=== PATIENT | male | born 1970 | race Caucasian/White ===

== ENCOUNTER 2016-11-21 16:02 | Inpatient (IN) | payer MEDICAID ==
--- NOTE | 2016-11-21 16:52 | ED Physician Chart ---
Chief Complaint/HPI - Patient Information Date Seen:: 11/21/16 Time Seen:: 16:25 Chief Complaint:: seizure History of Present Illness:: At the patient's care home facility he had an approximately 5 minute long seizure. The seizure was described by the paramedics as stiffening and possibly shaking of the upper extremities. Paramedics administered 5 mg of Versed intramuscularly and the seizure stopped. Allergies:: Allergies Allergy/AdvReac Type Severity Reaction Status Date / Time No Known Allergies Allergy Verified 11/21/16 16:23 Vitals:: Vital Signs - 8 hr 11/21/16 16:02 Temp 97.4 F HR 87 RR 12 BP 109/78 O2 Sat % 95 Historian:: Other (paramedics) Review:: Nurse's Note Reviewed Review of Systems - Review of Systems General/Constitutional: No fever, No chills Skin: No skin lesions Head: No headache Eyes: No loss of vision ENT: No earache Neck: No neck pain, No swelling Cardio Vascular: No chest pain Pulmonary: No sputum, No wheezing GI: No nausea, No vomiting G/U: No dysuria Musculoskeletal: No bone or joint pain Endocrine: No polyuria, No polydipsia Hematopoietic: No bruising, No lymphadenopathy Allergic/Immuno: No urticaria Neurological: No syncope, Seizure Past Medical History - Past Medical History Past Medical History: HTN, Asthma/COPD, Other (profound mental retardation; seizure disorder; blind; anemia; asthma; osteopenia; hairline fracture left tibia; thyromegaly; mild congestive heart failure; hyperlipidemia) Family History: Other (unavailable) Social History: Care Facility Surgical History: other (unavailable) Psychiatricy History: Other (see above) Medication: Reviewed Family Medical History - Family Member Father History Unknown: Yes Physical Exam - Physical Examination Other Gen/Cons comments:: Chronically ill-appearing; mildly tachypnea Head: Atraumatic Eyes: Lids, conjuctiva normal, PERRL Skin: Nl inspection, No rash, No skin lesions, No ecchymosis ENMT: External ears, nose nl, TM canals nl, Nasal exam nl, Lips, teeth, gums nl , Oropharynx nl Neck: No nuchal rigidity Respiratory: Nl effort/Exclusion Other Respiratory comments:: Diffuse harsh breath sounds Cardio Vascular: RRR GI: No tenderness/rebounding/guarding, No organomegaly, No hernia : No CVA tenderness Other Extremities comments:: Left wrist and left hand contracture. Labs/Radiology/EKG Results - Lab Results Results: Laboratory Results - last 24 hr 11/21/16 11/21/16 11/21/16 17:18 17:18 17:59 WBC 13.0 H D RBC 4.39 Hgb 13.2 Hct 39.8 D MCV 90.6 MCH 30.1 H MCHC Differential 33.2 RDW 12.1 Plt Count 251 MPV 7.2 Neutrophils % 89.0 H Lymphocytes % 6.0 L Monocytes % 2.2 Eosinophils % 0.3 Basophils % 2.5 H Sodium 135 L Potassium 4.5 Chloride 99 Carbon Dioxide 33.4 H Anion Gap 7.1 BUN 12 Creatinine 0.6 L Est GFR ( Amer) > 60.0 Est GFR (Non-Af Amer) > 60.0 BUN/Creatinine Ratio 20.0 Glucose 116 H Whole Bld Lactic Acid 1.12 Calcium 10.5 H Carbamazepine < 2.0 L ED Septic Shock - . Is Septic Shock (SBP<90, OR Lactate>4 mmol\L) present?: No - <6hrs of presentation: Vital Signs: Vital Signs - 8 hr 11/21/16 16:02 Temp 97.4 F HR 87 RR 12 BP 109/78 O2 Sat % 95 Reassessment (Disposition) - Reassessment Reassessment Condition:: Improved - Diagnosis Diagnosis:: Seizure; no seizure disorder; thoracic quadriplegia; severe mental disability - Patient Disposition Admitted to:: Telemetry Spoke to:: [facility] Condition at Disposition:: Stable, Improved
[2016-11-21 17:25] LABS: % BASOPHILS 2.5 % (0.0-2.0); % EOSINOPHILS 0.3 % (0.0-5.0); % MONOCYTES 2.2 % (2.0-10.0); HEMOGLOBIN 13.2 gm/dL (13.2-17.3); MEAN CELL VOLUME 90.6 fl (80-99); MEAN CORPUSCULAR HEMOGLOBIN 30.1 pg (26.0-30.0); MEAN CORPUSCULAR HGB CONC 33.2 pg (28.0-36.0); MEAN PLATELET VOLUME 7.2 fl; NEUTROPHILE ABSOLUTE 11.6 Th/cmm (1.8-8.0); PLATELET COUNT 251 Th/cmm (150-400); RED BLOOD COUNT 4.39 Mil/cmm (4.30-5.70); RED CELL DISTRIBUTION WIDTH 12.1 % (11.5-20.0)
[2016-11-21 17:40] LABS: ANION GAP 7.1 (7.0-16.0); BUN - UREA NITROGEN 12 mg/dL (7-25); CALCIUM SERUM 10.5 mg/dL (8.6-10.3); CARBON DIOXIDE 33.4 mEq/L (21.0-31.0); CHLORIDE 99 mEq/L (98-107); CREATININE - SERUM 0.6 mg/dL (0.7-1.3); GLUCOSE 116 mg/dL (70-105); POTASSIUM SERUM 4.5 mEq/L (3.5-5.1); SODIUM SERUM 135 mEq/L (136-145)
[2016-11-21 17:42] LABS: HEMATOCRIT 39.8 % (39.0-49.0)
[2016-11-21] MEDS ORDERED: Maalox 30 mL Cup PO PRN (20:31)
[2016-11-21] MEDS ORDERED: Albuterol Nebulizer 2.5mg/3mL HHN PRN (20:31)
[2016-11-21] MEDS ORDERED: guaiFENesin 200 MG/10 ML UDC PO PRN (20:31)
[2016-11-21] MEDS ORDERED: Magnesium Hydroxide (MOM) 30 mL UDC PO PRN (20:45)
--- NOTE | 2016-11-21 21:40 | Admit Criteria Form ---
Admit Criteria Forms - Admit Criteria Diagnosis: SEIZURE Clinical Indications for Admission to Inpatient Care (Place 'X' for any and all applicable criteria): Admission is indicated for seizure and ANY ONE of the following(1)(2)(3)(4)(5): [X]I. Inpatient admission required rather than observation care (Also use Seizure: Observation Care Criteria as appropriate) because of ANY ONE of the following: [ ]a) Altered mental status that is severe or persistent [ ]b) New focal neurologic deficit that is severe or persistent [ ]c) Metabolic disorder (eg, hypoglycemia, hyponatremia) that is severe or persistent [ ]d) Recurrent seizure [X]e) Outpatient antiseizure regimen cannot be established (eg , patient cannot tolerate medication, initiation requires inpatient care) [ ]f) Need for ongoing intravenous infusion of antiseizure medication [ ]g) Cardiac arrhythmias of immediate concern [ ]h) Cerebral bleeding, hydrocephalus, or vasospasm monitoring (14) [ ]i) Increased intracranial pressure or cerebral edema monitoring (15) [X]j) Other treatment or monitoring requiring inpatient admission [ ]II. Status epilepticus [A] or repetitive seizures not controlled with emergent treatment (6)(8) [ ]III. Brain disorder (eg, tumor, edema, and hydrocephalus) that requiring monitoring or intervention available only at inpatient level of care. [ ]IV. Brain insult (eg, severe trauma, stroke, drug toxicity, or withdrawal) that requires monitoring or intervention available only at inpatient level of care (10)(11) Extended stay beyond goal length of stay may be needed for (22) [ ]a) Complications of status epilepticus [ ]b) Refractory status epilepticus [ ]c) Etiology-specific therapy for conditions such as PANEL BUILDER infection, head injury,eclampsia, severe metabolic abnormalities, and brain tumor [ ]d) Residual neurologic damage, [ ]e) Initiation of significant change to anticonvulsant treatment [ ]f) Older patients (65 years or older) [ ]g) Patient requiring intubation (eg, to protect airway) The original [facility] content created by [employer] [facility] [employer] has been revised. The portions of the content which have been revised are identified through the use of italic text or in bold, and [facility] [employer] has neither reviewed nor approved the modified material. All other unmodified content is copyright [employer]. Please see references footnoted in the original [facility] edition 2016
[2016-11-21] MEDS: D5-0.45NS 1,000 ML IV SCH (22:01)
[2016-11-22] MEDS: Calcium Carb/Vit D 500 mg/200 U Tab PO SCH (08:45)
[2016-11-22] MEDS: Multivitamin w/ Minerals Tab PO SCH (08:45)
--- NOTE | 2016-11-22 10:01 | Diagnostic Imaging Report ---
Portable chest x-ray HISTORY: Shortness of breath The patient is rotated. Heart size difficult to assess, but appears to be enlarged. There appears to be increased density in left lower lobe with obscuration of the left hemidiaphragm. Pneumonia and/or atelectasis cannot be needed. There is a scoliosis of the thoracic spine convexity to the right along with diffuse degenerative changes. IMPRESSION: 1. Increased density within the left lower lobe. Pneumonia and/or atelectasis cannot be excluded 2. Cardiomegaly 3. Scoliosis
[2016-11-22] MEDS: D5-0.45NS 1,000 ML IV SCH ×2 (11:04→23:58)
[2016-11-22 11:07] LABS: URINE BILIRUBIN NEGATIVE (NEGATIVE); URINE BLOOD NEGATIVE (NEGATIVE); URINE COLOR YELLOW; URINE GLUCOSE (UA) NEGATIVE (NEGATIVE); URINE KETONE NEGATIVE (NEGATIVE); URINE PROTEIN NEGATIVE (NEGATIVE); URINE UROBILINOGEN 0.2 E.U./dL (0.2 - 1.0)
[2016-11-22 11:17] LABS: URINE BACTERIA NONE SEEN /hpf (NONE SEEN); URINE EPITHELIAL CELLS NONE SEEN /lpf (FEW); URINE RBC NONE SEEN /hpf (0-5); URINE WBC 0-2 /hpf (0-5)
[2016-11-22] MEDS: Levofloxacin 500mg/100mL 500 MG/100 ML BAG IV SCH (15:04)
--- NOTE | 2016-11-22 16:39 | Diagnostic Imaging Report ---
Portable chest x-ray HISTORY: Pneumonia Patient is rotated. The heart appears somewhat enlarged. No definite focal pulmonary parenchymal processes are seen. Improved visualization of the left lower lobe and left hemidiaphragm since 11/21/2016. IMPRESSION: 1. Improved visualization of the left lower lobe since November 21, 2016 with no definite focal pulmonary parenchymal processes.
--- NOTE | 2016-11-22 18:38 | History & Physical ---
ADMIT DATE: 11/21/2016 CHIEF COMPLAINT: Uncontrolled seizures. HISTORY OF PRESENT ILLNESS: This is a 46-year-old male with history of seizure disorder, mental retardation, cerebral palsy, hypercholesterolemia, scoliosis, who was admitted from nursing facility secondary to seizure lasting for several minutes and then was brought into Emergency Room ____ low. PAST MEDICAL HISTORY: As mentioned in history present illness. PAST SURGICAL HISTORY: Unable to obtain from the patient. ALLERGIES: No known drug allergies. MEDICATIONS: Tylenol, Dulcolax, Lamictal, Keppra, Trileptal, Zocor. FAMILY HISTORY: Noncontributory. SOCIAL HISTORY: The patient is a halfway patient requiring 24-hour total care. REVIEW OF SYSTEMS: This is limited secondary to the patient's current mental state. We have also spoken with patient and ____, number [phone]. There is mother, ____ Zainab Padilla, I did not have contact number. At this time, we have also ____ information from ____ nursing at [facility], [place] ____, her number is [phone] as well as from Dr. Russo. PHYSICAL EXAMINATION: VITAL SIGNS: Blood pressure 107/68, respirations 17, pulse 66, temperature 97.8. GENERAL: Middle-aged male, appears chronically ill. NECK: Supple. No mass. LUNGS: Equal breath sounds, few rhonchi. HEART: Regular rate and rhythm without appreciable murmurs. ABDOMEN: Soft and nontender. EXTREMITIES: Positive excoriations. NEUROLOGIC: Positive contractures. LABORATORY DATA: WBC 13.0, hemoglobin ____, platelets are 251. Sodium 130, potassium 4.5, BUN 12, creatinine 0.6, glucose 116, calcium 10.5. UA essentially negative. ASSESSMENT AND PLAN: Uncontrolled seizure, hyponatremia, hyperglycemia, mental retardation, cerebral palsy, hypercholesterolemia, possible pneumonia, scoliosis. Chest x-ray showed opacity on the right side of ____. We started the patient on IV antibiotic and continue on IV hydration and will adjust the patient's antihypertensive medication. We will continue to monitor the patient closely. Case was discussed with the patient's family members ____. JOB# [id number]
[2016-11-23 05:17] LABS: HEMOGLOBIN 12.2 gm/dL (13.2-17.3); MEAN CELL VOLUME 90.6 fl (80-99); MEAN CORPUSCULAR HEMOGLOBIN 30.9 pg (26.0-30.0); MEAN CORPUSCULAR HGB CONC 34.1 pg (28.0-36.0); MEAN PLATELET VOLUME 7.3 fl; PLATELET COUNT 252 Th/cmm (150-400); RED BLOOD COUNT 3.94 Mil/cmm (4.30-5.70)
[2016-11-23 05:31] LABS: HEMATOCRIT 35.7 % (39.0-49.0); WHITE BLOOD COUNT 10.2 Th/cmm (4.8-10.8)
[2016-11-23 05:32] LABS: ALB/GLOB RATIO 1.2 (1.0-1.8); ALKALINE PHOSPHATASE 93 U/L (34-104); ANION GAP 7.8 (7.0-16.0); BILIRUBIN,TOTAL 0.4 mg/dL (0.3-1.0); BUN - UREA NITROGEN 7 mg/dL (7-25); BUN/CREATININE RATIO 11.7; CALCIUM SERUM 9.5 mg/dL (8.6-10.3); CARBON DIOXIDE 27.8 mEq/L (21.0-31.0); CHLORIDE 100 mEq/L (98-107); CREATININE - SERUM 0.6 mg/dL (0.7-1.3); GLUCOSE 114 mg/dL (70-105); MAGNESIUM 1.7 mg/dL (1.9-2.7); POTASSIUM SERUM 3.6 mEq/L (3.5-5.1); SGOT 18 U/L (13-39); SGPT/ALT 23 U/L (7-52); SODIUM SERUM 132 mEq/L (136-145)
[2016-11-23] MEDS: Calcium Carb/Vit D 500 mg/200 U Tab PO SCH (08:45)
[2016-11-23] MEDS: Multivitamin w/ Minerals Tab PO SCH (08:45)
[2016-11-23 09:38] LABS: BAND NEUTROPHILE 3 % (0-10); EOSINOPHIL 2 % (0-5); NEUTROPHILS 83 % (40-80); TOTAL CELLS COUNTED 100
[2016-11-23 09:39] LABS: PLATELET ESTIMATE ADEQUATE (NORMAL); PLATELET MORPHOLOGY NORMAL (NORMAL)
[2016-11-23] MEDS: Fleet Enema 135 mL RC SCH (11:12)
[2016-11-23] MEDS: Levofloxacin 500mg/100mL 500 MG/100 ML BAG IV SCH (14:49)
[2016-11-23] MEDS: D5-0.45NS 1,000 ML IV SCH (14:50)
[2016-11-23] MEDS ORDERED: Mag Sulfate 2gm/50mL Premix 2 GM/50 ML BAG IV ONE (15:34)
--- NOTE | 2016-11-23 15:36 | Internal Medicine Prog Note ---
Internal Medicine Subjective - Subjective Patient seen and examined:: with staff, chart reviewed Patient is:: asleep, non-verbal, non-interactive Patient Complaints of:: congestion, sore throat Per staff patient is:: no episodes of fall, confused Internal Medicine Objective - Results Result Diagrams: 11/23/16 04:52 11/23/16 04:52 Recent Labs: Laboratory Last Values WBC 10.2 Th/cmm (4.8-10.8) D 11/23/16 04:52 RBC 3.94 Mil/cmm (4.30-5.70) L 11/23/16 04:52 Hgb 12.2 gm/dL (13.2-17.3) L 11/23/16 04:52 Hct 35.7 % (39.0-49.0) L D 11/23/16 04:52 MCV 90.6 fl (80-99) 11/23/16 04:52 MCH 30.9 pg (26.0-30.0) H 11/23/16 04:52 MCHC Differential 34.1 pg (28.0-36.0) 11/23/16 04:52 RDW 12.0 % (11.5-20.0) 11/23/16 04:52 Plt Count 252 Th/cmm (150-400) 11/23/16 04:52 MPV 7.3 fl 11/23/16 04:52 Neutrophils % 89.0 % (40.0-80.0) H 11/21/16 17:18 Band Neutrophils % 3 % (0-10) 11/23/16 04:52 Lymphocytes % 6.0 % (20.0-50.0) L 11/21/16 17:18 Monocytes % 2.2 % (2.0-10.0) 11/21/16 17:18 Eosinophils % 0.3 % (0.0-5.0) 11/21/16 17:18 Basophils % 2.5 % (0.0-2.0) H 11/21/16 17:18 Neutrophils (Manual) 83 % (40-80) H 11/23/16 04:52 Lymphocytes 10 % (20-50) L 11/23/16 04:52 Monocytes 2 % (2-10) 11/23/16 04:52 Eosinophils 2 % (0-5) 11/23/16 04:52 Platelet Estimate ADEQUATE (NORMAL) 11/23/16 04:52 Platelet Morphology NORMAL (NORMAL) 11/23/16 04:52 RBC Morph Micro Appear NORMAL (NORMAL) 11/23/16 04:52 Sodium 132 mEq/L (136-145) L 11/23/16 04:52 Potassium 3.6 mEq/L (3.5-5.1) 11/23/16 04:52 Chloride 100 mEq/L (98-107) 11/23/16 04:52 Carbon Dioxide 27.8 mEq/L (21.0-31.0) 11/23/16 04:52 Anion Gap 7.8 (7.0-16.0) 11/23/16 04:52 BUN 7 mg/dL (7-25) 11/23/16 04:52 Creatinine 0.6 mg/dL (0.7-1.3) L 11/23/16 04:52 Est GFR ( Amer) > 60.0 ml/min (>90) 11/23/16 04:52 Est GFR (Non-Af Amer) > 60.0 ml/min 11/23/16 04:52 BUN/Creatinine Ratio 11.7 11/23/16 04:52 Glucose 114 mg/dL (70-105) H 11/23/16 04:52 Whole Bld Lactic Acid 1.12 mmol/L (0.60-1.99) 11/21/16 17:59 Calcium 9.5 mg/dL (8.6-10.3) 11/23/16 04:52 Magnesium 1.7 mg/dL (1.9-2.7) L 11/23/16 04:52 Total Bilirubin 0.4 mg/dL (0.3-1.0) 11/23/16 04:52 AST 18 U/L (13-39) 11/23/16 04:52 ALT 23 U/L (7-52) 11/23/16 04:52 Alkaline Phosphatase 93 U/L (34-104) 11/23/16 04:52 Total Protein 7.4 gm/dL (6.0-8.3) 11/23/16 04:52 Albumin 4.1 gm/dL (4.2-5.5) L 11/23/16 04:52 Globulin 3.3 gm/dL 11/23/16 04:52 Albumin/Globulin Ratio 1.2 (1.0-1.8) 11/23/16 04:52 Urine Source CATH 11/22/16 10:40 Urine Color YELLOW 11/22/16 10:40 Urine Clarity SL. CLOUDY (CLEAR) 11/22/16 10:40 Urine pH 7.0 11/22/16 10:40 Ur Specific [place] 1.015 (1.005-1.030) 11/22/16 10:40 Urine Protein NEGATIVE mg/dL (NEGATIVE) 11/22/16 10:40 Urine Glucose (UA) NEGATIVE mg/dL (NEGATIVE) 11/22/16 10:40 Urine Ketones NEGATIVE mg/dL (NEGATIVE) 11/22/16 10:40 Urine Blood NEGATIVE (NEGATIVE) 11/22/16 10:40 Urine Nitrate NEGATIVE (NEGATIVE) 11/22/16 10:40 Urine Bilirubin NEGATIVE (NEGATIVE) 11/22/16 10:40 Urine Urobilinogen 0.2 E.U./dL (0.2 - 1.0) 11/22/16 10:40 Ur Leukocyte Esterase NEGATIVE (NEGATIVE) 11/22/16 10:40 Urine RBC NONE SEEN /hpf (0-5) 11/22/16 10:40 Urine WBC 0-2 /hpf (0-5) 11/22/16 10:40 Ur Epithelial Cells NONE SEEN /lpf (FEW) 11/22/16 10:40 Urine Bacteria NONE SEEN /hpf (NONE SEEN) 11/22/16 10:40 Carbamazepine < 2.0 ug/ml (4.0-12.0) L 11/21/16 17:18 - Physical Exam Vitals and I&O: Vital Signs Temp 98.3 F 11/23/16 11:47 Pulse 71 11/23/16 11:47 Resp 18 11/23/16 13:00 BP 106/65 11/23/16 11:47 Pulse Ox 97 11/23/16 11:47 Intake & Output 11/22/16 11/23/16 11/23/16 18:59 06:59 18:59 Intake Total 1400 1050 1000 Balance 1400 1050 1000 Weight (lbs) 52.617 kg 56.501 kg 56.501 kg Intake: Intake, IV Amount 1100 1000 1000 D5-0.45NS 1,000 ml @ 80 1000 1000 1000 mls/hr IV .[id number] [facility] Rx #:[id number] Levofloxacin 500mg/100mL 100 500 mg In 100 ml @ 100 mls/hr IV Q24HR [facility] Rx#: [id number] Oral 300 50 Other: # Voids 2 2 1 # Bowel Movements 0 1 Active Medications: Current Medications Acetaminophen (Tylenol) 650 mg PO Q4HR PRN PRN Reason: Pain (Mild) Stop: 01/20/17 20:28 Al Hydrox/Mg Hydrox/Simethicone (Maalox) 30 ml PO Q6H PRN PRN Reason: Dyspepsia Stop: 01/20/17 20:30 Albuterol Sulfate (Albuterol 2.5mg/3ml Neb Ud) 2.5 mg HHN Q2HRT PRN PRN Reason: Shortness of Breath or Wheeze Stop: 01/20/17 20:30 Atenolol (Tenormin) 50 mg PO DAILY [facility] Stop: 01/21/17 08:59 Last Admin: 11/23/16 08:45 Dose: 50 mg Bisacodyl (Dulcolax 10 Mg Supp) 10 mg RC DAILY PRN PRN Reason: Constipation Stop: 01/20/17 20:37 Calcium/Vitamin D (Oscal W/Vitamin D) 1 tab PO DAILY [facility] Stop: 01/21/17 08:59 Last Admin: 11/23/16 08:45 Dose: 1 tab Guaifenesin (Robitussin) 200 mg PO Q4HR PRN PRN Reason: Cough or Congestion Stop: 01/20/17 20:30 Dextrose/Sodium Chloride (D5-0.45ns) 1,000 mls @ 80 mls/hr IV .[id number] [facility] Stop: 01/20/17 20:44 Last Admin: 11/23/16 14:50 Dose: 80 mls/hr Levofloxacin (Levaquin Pb) 500 mg in 100 mls @ 100 mls/hr IV Q24HR [facility] Stop: 01/21/17 14:59 Last Admin: 11/23/16 14:49 Dose: 100 mls/hr Magnesium Sulfate (Magnesium Sulfate Premix) 2 gm in 50 mls @ 25 mls/hr IV X1 ONE Stop: 11/23/16 17:33 Lamotrigine (Lamictal) 350 mg PO BID [facility] Stop: 01/21/17 08:59 Last Admin: 11/23/16 08:46 Dose: 350 mg Levetiracetam (Keppra) 2,000 mg PO HS [facility] Stop: 01/20/17 20:59 Last Admin: 11/22/16 22:03 Dose: 2,000 mg Lorazepam (Ativan) 1 mg IV Q4H PRN; Protocol PRN Reason: Seizure Stop: 01/20/17 20:30 Magnesium Hydroxide (Milk Of Magnesia) 30 ml PO DAILY PRN PRN Reason: Constipation Stop: 01/20/17 20:44 Ondansetron HCl (Zofran) 4 mg IV Q8H PRN PRN Reason: Nausea / Vomiting Stop: 01/20/17 20:30 Oxcarbazepine (Trileptal) 900 mg PO BID [facility] Stop: 01/21/17 16:59 Last Admin: 11/23/16 10:11 Dose: 900 mg Simvastatin (Zocor) 20 mg PO QPM [facility] PRN Reason: Protocol Stop: 01/21/17 16:59 Last Admin: 11/22/16 17:15 Dose: 20 mg Sodium Phosphate (Fleet Enema) 133 ml RC DAILY [facility] Stop: 01/21/17 08:59 Last Admin: 11/23/16 11:12 Dose: Not Given General: demented HEENT: NC/AT, PERRLA Neck: Supple, No JVD Lungs: congested, rales Cardiovascular: RRR, Normal S1, Normal S2 Abdomen: soft non-tender, globular, positive bowel sound Extremities: excoriation, contracture Neurological: no change - Procedures Procedures: Procedures Procedure Code Date INSERT INDWELLING CATH 57.94 12/19/01 INSERT URINARY CATHETER 72033 12/19/01 Internal Medicine Assmt/Plan - Assessment Assessment: Uncontrolled seizure, hyponatremia, hyperglycemia, mental retardation, cerebral palsy, hypercholesterolemia, possible pneumonia, scoliosis - Plan Plan: cont on iv abx o2 bronchodilator tx check cxr dw rn pls see my order
[2016-11-24] MEDS: D5-0.45NS 1,000 ML IV SCH ×2 (05:40→19:35)
--- NOTE | 2016-11-24 09:18 | Diagnostic Imaging Report ---
Portable chest x-ray HISTORY: Cough The overall heart size is difficult to assess with portable technique in a poor inspiration. No acute focal pulmonary processes. No hilar or mediastinal abnormalities. Scoliosis of the thoracic spine. This may be positional. IMPRESSION: 1. No acute focal pulmonary processes
[2016-11-24] MEDS: Fleet Enema 135 mL RC SCH (09:20)
[2016-11-24] MEDS: Multivitamin w/ Minerals Tab PO SCH (09:21)
[2016-11-24] MEDS: Calcium Carb/Vit D 500 mg/200 U Tab PO SCH (09:21)
[2016-11-24] MEDS: Levofloxacin 500mg/100mL 500 MG/100 ML BAG IV SCH (14:18)
--- NOTE | 2016-11-24 22:36 | Internal Medicine Prog Note ---
Internal Medicine Subjective - Subjective Patient seen and examined:: with staff, chart reviewed Patient is:: asleep, non-verbal, non-interactive Patient Complaints of:: congestion Per staff patient is:: no adverse event, no episodes of fall, noncompliant, confused Internal Medicine Objective - Results Result Diagrams: 11/23/16 04:52 11/23/16 04:52 Recent Labs: Laboratory Last Values WBC 10.2 Th/cmm (4.8-10.8) D 11/23/16 04:52 RBC 3.94 Mil/cmm (4.30-5.70) L 11/23/16 04:52 Hgb 12.2 gm/dL (13.2-17.3) L 11/23/16 04:52 Hct 35.7 % (39.0-49.0) L D 11/23/16 04:52 MCV 90.6 fl (80-99) 11/23/16 04:52 MCH 30.9 pg (26.0-30.0) H 11/23/16 04:52 MCHC Differential 34.1 pg (28.0-36.0) 11/23/16 04:52 RDW 12.0 % (11.5-20.0) 11/23/16 04:52 Plt Count 252 Th/cmm (150-400) 11/23/16 04:52 MPV 7.3 fl 11/23/16 04:52 Neutrophils % 89.0 % (40.0-80.0) H 11/21/16 17:18 Band Neutrophils % 3 % (0-10) 11/23/16 04:52 Lymphocytes % 6.0 % (20.0-50.0) L 11/21/16 17:18 Monocytes % 2.2 % (2.0-10.0) 11/21/16 17:18 Eosinophils % 0.3 % (0.0-5.0) 11/21/16 17:18 Basophils % 2.5 % (0.0-2.0) H 11/21/16 17:18 Neutrophils (Manual) 83 % (40-80) H 11/23/16 04:52 Lymphocytes 10 % (20-50) L 11/23/16 04:52 Monocytes 2 % (2-10) 11/23/16 04:52 Eosinophils 2 % (0-5) 11/23/16 04:52 Platelet Estimate ADEQUATE (NORMAL) 11/23/16 04:52 Platelet Morphology NORMAL (NORMAL) 11/23/16 04:52 RBC Morph Micro Appear NORMAL (NORMAL) 11/23/16 04:52 Sodium 132 mEq/L (136-145) L 11/23/16 04:52 Potassium 3.6 mEq/L (3.5-5.1) 11/23/16 04:52 Chloride 100 mEq/L (98-107) 11/23/16 04:52 Carbon Dioxide 27.8 mEq/L (21.0-31.0) 11/23/16 04:52 Anion Gap 7.8 (7.0-16.0) 11/23/16 04:52 BUN 7 mg/dL (7-25) 11/23/16 04:52 Creatinine 0.6 mg/dL (0.7-1.3) L 11/23/16 04:52 Est GFR ( Amer) > 60.0 ml/min (>90) 11/23/16 04:52 Est GFR (Non-Af Amer) > 60.0 ml/min 11/23/16 04:52 BUN/Creatinine Ratio 11.7 11/23/16 04:52 Glucose 114 mg/dL (70-105) H 11/23/16 04:52 Whole Bld Lactic Acid 1.12 mmol/L (0.60-1.99) 11/21/16 17:59 Calcium 9.5 mg/dL (8.6-10.3) 11/23/16 04:52 Magnesium 1.7 mg/dL (1.9-2.7) L 11/23/16 04:52 Total Bilirubin 0.4 mg/dL (0.3-1.0) 11/23/16 04:52 AST 18 U/L (13-39) 11/23/16 04:52 ALT 23 U/L (7-52) 11/23/16 04:52 Alkaline Phosphatase 93 U/L (34-104) 11/23/16 04:52 Total Protein 7.4 gm/dL (6.0-8.3) 11/23/16 04:52 Albumin 4.1 gm/dL (4.2-5.5) L 11/23/16 04:52 Globulin 3.3 gm/dL 11/23/16 04:52 Albumin/Globulin Ratio 1.2 (1.0-1.8) 11/23/16 04:52 Urine Source CATH 11/22/16 10:40 Urine Color YELLOW 11/22/16 10:40 Urine Clarity SL. CLOUDY (CLEAR) 11/22/16 10:40 Urine pH 7.0 11/22/16 10:40 Ur Specific [place] 1.015 (1.005-1.030) 11/22/16 10:40 Urine Protein NEGATIVE mg/dL (NEGATIVE) 11/22/16 10:40 Urine Glucose (UA) NEGATIVE mg/dL (NEGATIVE) 11/22/16 10:40 Urine Ketones NEGATIVE mg/dL (NEGATIVE) 11/22/16 10:40 Urine Blood NEGATIVE (NEGATIVE) 11/22/16 10:40 Urine Nitrate NEGATIVE (NEGATIVE) 11/22/16 10:40 Urine Bilirubin NEGATIVE (NEGATIVE) 11/22/16 10:40 Urine Urobilinogen 0.2 E.U./dL (0.2 - 1.0) 11/22/16 10:40 Ur Leukocyte Esterase NEGATIVE (NEGATIVE) 11/22/16 10:40 Urine RBC NONE SEEN /hpf (0-5) 11/22/16 10:40 Urine WBC 0-2 /hpf (0-5) 11/22/16 10:40 Ur Epithelial Cells NONE SEEN /lpf (FEW) 11/22/16 10:40 Urine Bacteria NONE SEEN /hpf (NONE SEEN) 11/22/16 10:40 Carbamazepine < 2.0 ug/ml (4.0-12.0) L 11/21/16 17:18 - Physical Exam Vitals and I&O: Vital Signs Temp 98.0 F 11/24/16 20:00 Pulse 66 11/24/16 20:26 Resp 16 11/24/16 20:26 BP 93/53 11/24/16 20:00 Pulse Ox 95 11/24/16 20:26 Intake & Output 11/24/16 11/24/16 11/25/16 06:59 18:59 06:59 Intake Total 1000 1000 Balance 1000 1000 Weight (lbs) 57.198 kg Intake: Intake, IV Amount 1000 1000 D5-0.45NS 1,000 ml @ 80 1000 1000 mls/hr IV .[id number] [facility] Rx #:[id number] Other: # Voids 3 # Bowel Movements 0 Active Medications: Current Medications Acetaminophen (Tylenol) 650 mg PO Q4HR PRN PRN Reason: Pain (Mild) Stop: 01/20/17 20:28 Al Hydrox/Mg Hydrox/Simethicone (Maalox) 30 ml PO Q6H PRN PRN Reason: Dyspepsia Stop: 01/20/17 20:30 Albuterol Sulfate (Albuterol 2.5mg/3ml Neb Ud) 2.5 mg HHN Q2HRT PRN PRN Reason: Shortness of Breath or Wheeze Stop: 01/20/17 20:30 Atenolol (Tenormin) 50 mg PO DAILY [facility] Stop: 01/21/17 08:59 Last Admin: 11/24/16 09:21 Dose: Not Given Bisacodyl (Dulcolax 10 Mg Supp) 10 mg RC DAILY PRN PRN Reason: Constipation Stop: 01/20/17 20:37 Calcium/Vitamin D (Oscal W/Vitamin D) 1 tab PO DAILY [facility] Stop: 01/21/17 08:59 Last Admin: 11/24/16 09:21 Dose: 1 tab Guaifenesin (Robitussin) 200 mg PO Q4HR PRN PRN Reason: Cough or Congestion Stop: 01/20/17 20:30 Dextrose/Sodium Chloride (D5-0.45ns) 1,000 mls @ 80 mls/hr IV .[id number] [facility] Stop: 01/20/17 20:44 Last Admin: 11/24/16 19:35 Dose: 80 mls/hr Levofloxacin (Levaquin Pb) 500 mg in 100 mls @ 100 mls/hr IV Q24HR [facility] Stop: 01/21/17 14:59 Last Admin: 11/24/16 14:18 Dose: 100 mls/hr Lamotrigine (Lamictal) 350 mg PO BID [facility] Stop: 01/21/17 08:59 Last Admin: 11/24/16 17:18 Dose: Not Given Levetiracetam (Keppra) 2,000 mg PO HS [facility] Stop: 01/20/17 20:59 Last Admin: 11/24/16 20:24 Dose: 2,000 mg Lorazepam (Ativan) 1 mg IV Q4H PRN; Protocol PRN Reason: Seizure Stop: 01/20/17 20:30 Magnesium Hydroxide (Milk Of Magnesia) 30 ml PO DAILY PRN PRN Reason: Constipation Stop: 01/20/17 20:44 Ondansetron HCl (Zofran) 4 mg IV Q8H PRN PRN Reason: Nausea / Vomiting Stop: 01/20/17 20:30 Oxcarbazepine (Trileptal) 900 mg PO BID [facility] Stop: 01/21/17 16:59 Last Admin: 11/24/16 17:18 Dose: Not Given Simvastatin (Zocor) 20 mg PO QPM [facility] PRN Reason: Protocol Stop: 01/21/17 16:59 Last Admin: 11/24/16 17:18 Dose: Not Given Sodium Phosphate (Fleet Enema) 133 ml RC DAILY [facility] Stop: 01/21/17 08:59 Last Admin: 11/24/16 09:20 Dose: Not Given General: demented HEENT: NC/AT, PERRLA Neck: Supple, No JVD Lungs: congested Cardiovascular: RRR, Normal S1, Normal S2 Abdomen: soft non-tender, globular, +GT Extremities: excoriation Neurological: no change, disorganized, unable to follow command - Procedures Procedures: Procedures Procedure Code Date INSERT INDWELLING CATH 57.94 12/19/01 INSERT URINARY CATHETER [id number] 12/19/01 Internal Medicine Assmt/Plan - Assessment Assessment: Uncontrolled seizure, hyponatremia, hyperglycemia, mental retardation, cerebral palsy, hypercholesterolemia, possible pneumonia, scoliosis - Plan Plan: cont on iv abx o2 bronchodilator tx check cxr dw rn pls see my order placement soon
[2016-11-25 05:13] LABS: % EOSINOPHILS 6.1 % (0.0-5.0); % LYMPHOCYTES 19.2 % (20.0-50.0); % MONOCYTES 9.2 % (2.0-10.0); % NEUTROPHILS 64.5 % (40.0-80.0); HEMOGLOBIN 13.2 gm/dL (13.2-17.3); MEAN CELL VOLUME 91.2 fl (80-99); MEAN CORPUSCULAR HEMOGLOBIN 30.6 pg (26.0-30.0); MEAN CORPUSCULAR HGB CONC 33.5 pg (28.0-36.0); MEAN PLATELET VOLUME 7.1 fl; NEUTROPHILE ABSOLUTE 4.5 Th/cmm (1.8-8.0); PLATELET COUNT 253 Th/cmm (150-400); RED BLOOD COUNT 4.31 Mil/cmm (4.30-5.70); RED CELL DISTRIBUTION WIDTH 11.6 % (11.5-20.0)
[2016-11-25 05:30] LABS: ANION GAP 9.4 (7.0-16.0); BUN - UREA NITROGEN 4 mg/dL (7-25); BUN/CREATININE RATIO 6.7; CALCIUM SERUM 9.3 mg/dL (8.6-10.3); CARBON DIOXIDE 26.4 mEq/L (21.0-31.0); CHLORIDE 105 mEq/L (98-107); CREATININE - SERUM 0.6 mg/dL (0.7-1.3); GLUCOSE 112 mg/dL (70-105); POTASSIUM SERUM 3.8 mEq/L (3.5-5.1); SODIUM SERUM 137 mEq/L (136-145)
[2016-11-25 05:31] LABS: HEMATOCRIT 39.3 % (39.0-49.0); WHITE BLOOD COUNT 7.1 Th/cmm (4.8-10.8)
[2016-11-25] MEDS: D5-0.45NS 1,000 ML IV SCH (08:00)
[2016-11-25] MEDS: Multivitamin w/ Minerals Tab PO SCH (09:02)
[2016-11-25] MEDS: Calcium Carb/Vit D 500 mg/200 U Tab PO SCH (09:02)
[2016-11-25] MEDS: Fleet Enema 135 mL RC SCH (09:06)
--- NOTE | 2016-11-25 22:26 | Discharge Summary ---
DATE OF DISCHARGE: 11/25/2016 CHIEF COMPLAINTCHIEF COMPLAINT: Uncontrolled seizure. FINAL DIAGNOSES: Uncontrolled seizure, which is better, electrolyte abnormalities, hyperglycemia, mental retardation, cerebral palsy, elevated cholesterol, scoliosis, possible pneumonia. HISTORY: This is a 46 years old male with history of mental retardation, cerebral palsy, seizure, hypercholesterolemia, scoliosis who was admitted from nursing facility secondary to uncontrolled seizure. The patient was admitted to telemetry. PHYSICAL EXAMINATION: VITAL SIGNS: Blood pressure 142/84, respirations 18, pulse 69, temperature ____. GENERAL: Elderly male, appears older. NECK: Supple. No mass. LUNGS: Equal breath sounds, few rhonchi. HEART: Regular rate and rhythm without appreciable murmurs. ABDOMEN: Soft, nontender. EXTREMITIES: Positive excoriations. NEUROLOGIC: Limited. HOSPITAL COURSE: The patient was admitted to telemetry, continued on IV hydration. X-ray was nonrevealing. The patient's antibiotic medications were adjusted. The patient was cleared for discharge. Case was discussed with Tere ____ at [place]. CONDITION ON DISCHARGE: Fair. DISCHARGE INSTRUCTIONS: The patient to return to ER if his condition worsens. JOB# [id number]
[2016-11-26 14:18] LABS: FOLIC ACID >20.0 ng/mL (>3.0)
== END 2016-11-25 13:35 | disposition home or self-care (01) | DRG 53 ==
LOC: ER 16:02 → MSI 19:45 → TELE 11-22 06:27
PROVIDERS: ADMIT Internal Medicine; ATTEND Internal Medicine
DX: G40.909 Epilepsy, unspecified, not intractable, without status epilepticus (principal); J69.0 Pneumonitis due to inhalation of food and vomit; G82.50 Quadriplegia, unspecified; I11.0 Hypertensive heart disease with heart failure; F73 Profound intellectual disabilities; I50.9 Heart failure, unspecified; E87.1 Hypo-osmolality and hyponatremia; R73.9 Hyperglycemia, unspecified; E78.5 Hyperlipidemia, unspecified; M41.9 Scoliosis, unspecified; D64.9 Anemia, unspecified; M85.80 Other specified disorders of bone density and structure, unspecified site; H54.0 Blindness, both eyes; Z91.14 Patient's other noncompliance with medication regimen
CPT/HCPCS: 36415-UA; 71010-TC; 80048-TC; 80053-TC; 80156-TC; 81001-TC; 82140-TC; 82607-90; 82746-90; 83605; 83735-TC; 85007-TC; 85025-TC; 85027-TC; 94760; J1956; J3475; Z7610

== ENCOUNTER 2017-03-12 17:04 | Inpatient (IN) | payer MEDICAID ==
--- NOTE | 2017-03-12 17:22 | ED Physician Chart ---
ED Chief Complaint/HPI - Patient Information Date Seen:: 03/12/17 Time Seen:: 17:15 Chief Complaint:: Seizures History of Present Illness:: onset x one day of intermittent seizure activity which is greater in length of time and in occurence; no report of H/A, LOC, ALOC, AMS, Neck pain,. C/P, SOB, Abd. Paibn, A/N/V/D/C, fever, chills, or urinary s/s Allergies:: Allergies Allergy/AdvReac Type Severity Reaction Status Date / Time No Known Allergies Allergy Verified 11/21/16 16:23 Historian:: Patient, EMS Review:: Nurse's Note Reviewed, EMS run form Reviewed, Transfer documents Reviewed ED Review of Systems - Review of Systems General/Constitutional: No fever, No chills, No weight loss, No weakness, No diaphoresis, No edema, No loss of appetite Skin: No skin lesions, No rash, No bruising Head: No headache, No light-headedness Eyes: No loss of vision, No pain, No diplopia ENT: No earache, No nasal drainage, No sore throat, No tinnitus Neck: No neck pain, No swelling, No thyromegaly, No stiffness, No mass noted Cardio Vascular: No chest pain, No palpitations, No PND, No orthopnea, No edema Pulmonary: No SOB, No cough, No sputum, No wheezing GI: No nausea, No vomiting, No diarrhea, No pain, No melena, No hematochezia, No constipation, No hematemesis G/U: No dysuria, No frequency, No hematuria Musculoskeletal: No bone or joint pain, No back pain, No muscle pain Endocrine: No polyuria, No polydipsia Psychiatric: No prior psych history, No depression, No anxiety, No suicidal ideation Hematopoietic: No bruising, No lymphadenopathy Allergic/Immuno: No urticaria, No angioedema Neurological: No syncope, No focal symptoms, No weakness, No paresthesia, Headache, Seizure, Dizziness, Confusion, Vertigo ED Past Medical History - Past Medical History Obtainable: Yes Past Medical History: Seizures, Other (CP) Family History: HTN Social History: Non Smoker, No Alcohol, No Drug Use, Single, Care Facility Surgical History: None Psychiatricy History: None Medication: Reviewed Family Medical History - Family Member Father History Unknown: Yes Ethnicity: Unknown Living Status: Unknown ED Physical Exam - Physical Examination General/Constitutional: Awake, Well-developed, well-nourished, Alert, No distress, GCS 15, Non-toxic appearing, Ambulatory Head: Atraumatic Eyes: Lids, conjuctiva normal, PERRL, EOMI Skin: Nl inspection, No rash, No skin lesions, No ecchymosis, Well hydrated, No lymphadenopathy ENMT: External ears, nose nl, Nasal exam nl, Lips, teeth, gums nl Neck: Nontender, Full ROM w/o pain, No JVD, No nuchal rigidity, No bruit, No mass, No stridor Respiratory: Nl effort/Exclusion, Clear to Auscultation, No Wheeze/Rhonchi/Rales Cardio Vascular: RRR, No murmur, gallop, rubs, NL S1 S2 GI: No tenderness/rebounding/guarding, No organomegaly, No hernia, Normal BS's, Nondistended, No mass/bruits, No McBurney tenderness : No CVA tenderness Extremities: No tenderness or effusion, Full ROM, normal strength in all extremities, No edema, Normal digits & nails Neuro/Psych: DTR's symmetric, Normal sensory exam, Normal motor strength, Judgement/insight normal, Mood normal, Normal gait, No focal deficits Other Neuro/Psych comments:: Disoriented and confued Misc: normal gait, Normal back, No paraspinal tenderness ED Labs/Radiology/EKG Results - Lab Results Comments:: Na+: 135 - Radiology Results Results: NAD - EKG Interpretations EKG Time:: 17:30 Rate & Rhythm: 72; NSR Comments:: Inverted T-Waves suggestive of Ischemia ED Septic Shock - . Is Septic Shock (SBP<90, OR Lactate>4 mmol\L) present?: No ED Reassessment (Disposition) - Reassessment Reassessment Condition:: Improved - Diagnosis Diagnosis:: Dx: Hyponatremia; Myocardial Ischemia; Epilepsy - Aftercare/Follow up Instructions Aftercare/Follow-Up Instructions:: Counseled pt regarding lab results/diagnosis & need follow up, Counseled pt & family regarding lab results/diagnosis & need follow up - Patient Disposition Discharge/Transfer:: Acute Care w/in this hosp Accepting Physician:: Dr. Hope Time Called:: 1899 Time Responded:: 19:00 Admitted to:: Telemetry Spoke to:: Dr. Hope Admitting Medical Physician:: Dr. Hope Condition at Disposition:: Stable, Improved
[2017-03-12 17:33] LABS: % BASOPHILS 1.6 % (0.0-2.0); % EOSINOPHILS 3.8 % (0.0-5.0); % LYMPHOCYTES 32.8 % (20.0-50.0); % MONOCYTES 10.8 % (2.0-10.0); HEMATOCRIT 42.2 % (41.0-60); HEMOGLOBIN 14.1 gm/dL (12-16); MEAN CELL VOLUME 92.7 fl (80-99); MEAN CORPUSCULAR HEMOGLOBIN 30.9 pg (26.0-30.0); MEAN CORPUSCULAR HGB CONC 33.3 pg (28.0-36.0); MEAN PLATELET VOLUME 7.1 fl; NEUTROPHILE ABSOLUTE 3.6 Th/cmm (1.8-8.0); PLATELET COUNT 255 Th/cmm (150-400); RED BLOOD COUNT 4.56 Mil/cmm (4.30-5.70); RED CELL DISTRIBUTION WIDTH 12.1 % (11.5-20.0); WHITE BLOOD COUNT 7.2 Th/cmm (4.8-10.8)
[2017-03-12 17:47] LABS: INR 0.96 (0.5-1.4)
[2017-03-12 17:54] LABS: ALB/GLOB RATIO 1.4 (1.0-1.8); ALKALINE PHOSPHATASE 112 U/L (34-104); ANION GAP 10.1 (7.0-16.0); BILIRUBIN,TOTAL 0.2 mg/dL (0.3-1.0); BUN - UREA NITROGEN 15 mg/dL (7-25); CARBON DIOXIDE 30.1 mEq/L (21.0-31.0); CHLORIDE 99 mEq/L (98-107); CHOLESTEROL 194 mg/dL (<200); CREATININE - SERUM 0.6 mg/dL (0.7-1.3); GLUCOSE 101 mg/dL (70-105); POTASSIUM SERUM 4.2 mEq/L (3.5-5.1); SGOT 18 U/L (13-39); SGPT/ALT 24 U/L (7-52); SODIUM SERUM 135 mEq/L (136-145); TRIGLYCERIDES 158 mg/dL (<150)
[2017-03-12] MEDS ORDERED: BISACODYL 10 MG RC PRN (19:44)
[2017-03-12] MEDS ORDERED: Non-Formulary Item 1 EA (Barrier Cream 1 UNIT) TP PRN (19:44)
[2017-03-12] MEDS ORDERED: Fleet Enema 135 mL RC PRN (19:44)
[2017-03-12] MEDS ORDERED: Non-Formulary Item 1 EA (Oxybenzone/Padimate O [Sunscreen Spf8 Lotion] 120 ML) TP PRN (19:44)
[2017-03-12] MEDS ORDERED: Magnesium Hydroxide (MOM) 30 mL UDC PO PRN (19:44)
[2017-03-12] MEDS ORDERED: Albuterol Nebulizer 2.5mg/3mL HHN PRN (19:46)
[2017-03-12] MEDS ORDERED: Ipratropium Neb 0.5 mg/2.5 mL UD IH PRN (19:46)
[2017-03-12] MEDS: D5-0.45NS 1,000 ML IV SCH (23:01)
[2017-03-12 23:21] VITALS: BP 124/79
--- NOTE | 2017-03-13 08:04 | Diagnostic Imaging Report ---
CHEST X-RAY: AP view INDICATION: pain COMPARISON: 11/24/2016 FINDINGS: There increased left basal lung markings are noted. Suboptimal lung bones are noted. Is no focal consolidation or pleural effusions cardiomegaly is noted. Degenerative changes of the spine are noted with scoliosis. There appears to be a old left midclavicular fracture. IMPRESSION: Increased left basal lung markings favoring atelectasis. Underlying infiltrate is less likely. Cardiomegaly.
--- NOTE | 2017-03-13 08:09 | Diagnostic Imaging Report ---
Head CT without intravenous contrast Indication: Seizures Comparison: None Technique: Axial images were obtained from the vertex to the skull base without IV contrast. Coronal reconstructions were made. Total DLP: 545, CTDI31.3 FINDINGS: Images of the brain obtained without contrast demonstrate no evidence of an acute hemorrhage. 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 No evidence of hydrocephalus. Mild atrophy is noted. No mass effect or midline shift. No evidence of a skull fracture. Mucous retention cyst versus polyp of the sphenoid sinuses are noted. Additional paranasal sinus inflammatory disease is noted. IMPRESSION: No evidence of acute intracranial hemorrhage. 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 Paranasal sinus inflammatory disease.
[2017-03-13] MEDS: Multivitamin w/ Minerals Tab PO SCH (08:43)
[2017-03-13] MEDS ORDERED: Menthol/Zinc Oxide Oint 113gm Tube TP PRN (08:53)
[2017-03-13] MEDS ORDERED: OXCARBAZEPINE 900 MG PO SCH (09:00)
[2017-03-13] MEDS ORDERED: CALCIUM PO SCH (09:00)
[2017-03-13] MEDS ORDERED: [UNRECOGNIZED DRUG - OTHER] PO SCH (09:00)
[2017-03-13] MEDS ORDERED: CHOLECALCIFEROL PO SCH (09:00)
[2017-03-13] MEDS ORDERED: LAMOTRIGINE PO SCH (09:00)
[2017-03-13] MEDS ORDERED: lamoTRIgine 300 MG, lamoTRIgine 50 MG PO SCH (09:00)
[2017-03-13] MEDS: D5-0.45NS 1,000 ML IV SCH ×2 (10:57→22:03)
--- NOTE | 2017-03-13 14:17 | Internal Medicine Prog Note ---
Internal Medicine Subjective - Subjective Service Date: 03/13/17 ([id number] hnp dictated) Internal Medicine Objective - Results Result Diagrams: 03/12/17 17:20 03/12/17 17:20 Recent Labs: Laboratory Last Values WBC 7.2 Th/cmm (4.8-10.8) 03/12/17 17:20 RBC 4.56 Mil/cmm (4.30-5.70) 03/12/17 17:20 Hgb 14.1 gm/dL (12-16) 03/12/17 17:20 Hct 42.2 % (41.0-60) 03/12/17 17:20 MCV 92.7 fl (80-99) 03/12/17 17:20 MCH 30.9 pg (26.0-30.0) H 03/12/17 17:20 MCHC Differential 33.3 pg (28.0-36.0) 03/12/17 17:20 RDW 12.1 % (11.5-20.0) 03/12/17 17:20 Plt Count 255 Th/cmm (150-400) 03/12/17 17:20 MPV 7.1 fl 03/12/17 17:20 Neutrophils % 51.0 % (40.0-80.0) 03/12/17 17:20 Lymphocytes % 32.8 % (20.0-50.0) 03/12/17 17:20 Monocytes % 10.8 % (2.0-10.0) H 03/12/17 17:20 Eosinophils % 3.8 % (0.0-5.0) 03/12/17 17:20 Basophils % 1.6 % (0.0-2.0) 03/12/17 17:20 PT 10.0 SECONDS (9.5-11.5) 03/12/17 17:20 INR 0.96 (0.5-1.4) 03/12/17 17:20 Sodium 135 mEq/L (136-145) L 03/12/17 17:20 Potassium 4.2 mEq/L (3.5-5.1) 03/12/17 17:20 Chloride 99 mEq/L (98-107) 03/12/17 17:20 Carbon Dioxide 30.1 mEq/L (21.0-31.0) 03/12/17 17:20 Anion Gap 10.1 (7.0-16.0) 03/12/17 17:20 BUN 15 mg/dL (7-25) 03/12/17 17:20 Creatinine 0.6 mg/dL (0.7-1.3) L 03/12/17 17:20 Est GFR ( Amer) > 60.0 ml/min (>90) 03/12/17 17:20 Est GFR (Non-Af Amer) > 60.0 ml/min 03/12/17 17:20 BUN/Creatinine Ratio 25.0 03/12/17 17:20 Glucose 101 mg/dL (70-105) 03/12/17 17:20 Calcium 10.0 mg/dL (8.6-10.3) 03/12/17 17:20 Total Bilirubin 0.2 mg/dL (0.3-1.0) L 03/12/17 17:20 AST 18 U/L (13-39) 03/12/17 17:20 ALT 24 U/L (7-52) 03/12/17 17:20 Alkaline Phosphatase 112 U/L (34-104) H 03/12/17 17:20 Creatine Kinase 48 U/L (30-223) 03/12/17 17:20 Troponin I < 0.01 ng/mL (0.01-0.05) L 03/12/17 17:20 B-Natriuretic Peptide 11.3 pg/mL (5.0-100.0) 03/12/17 17:20 Total Protein 8.0 gm/dL (6.0-8.3) 03/12/17 17:20 Albumin 4.7 gm/dL (4.2-5.5) 03/12/17 17:20 Globulin 3.3 gm/dL 03/12/17 17:20 Albumin/Globulin Ratio 1.4 (1.0-1.8) 03/12/17 17:20 Triglycerides 158 mg/dL (<150) H 03/12/17 17:20 Cholesterol 194 mg/dL (<200) 03/12/17 17:20 LDL Cholesterol Direct 136 mg/dL (75-193) 03/12/17 17:20 HDL Cholesterol 48 mg/dL (23-92) 03/12/17 17:20 - Physical Exam Vitals and I&O: Vital Signs Temp 97.6 F 03/13/17 12:00 Pulse 60 03/13/17 12:00 Resp 19 03/13/17 12:00 BP 144/90 03/13/17 12:00 Pulse Ox 98 03/13/17 12:00 Intake & Output 03/12/17 03/13/17 03/13/17 18:59 06:59 18:59 Intake Total 954.667 Balance 954.667 Weight (lbs) 112 lb 6 oz Intake: Intake, IV Amount 954.667 D5-0.45NS 1,000 ml @ 80 954.667 mls/hr IV .[id number] [facility] Rx #:[id number] Other: # Voids 3 Active Medications: Current Medications Acetaminophen (Tylenol) 650 mg PO Q4H PRN PRN Reason: Pain Or Fever above 101 Stop: 05/11/17 19:45 Albuterol Sulfate (Albuterol 2.5mg/3ml Neb Ud) 2.5 mg HHN Q2HRT PRN PRN Reason: Shortness of Breath or Wheeze Stop: 05/11/17 19:45 Atenolol (Tenormin) 50 mg PO DAILY [facility] Stop: 05/12/17 08:59 Last Admin: 03/13/17 08:44 Dose: Not Given Bisacodyl (Dulcolax 10 Mg Supp) 10 mg RC DAILY PRN PRN Reason: Constipation Stop: 05/12/17 08:53 Calamine/Phenol (Calmoseptine) 1 appl TP TID PRN PRN Reason: REDNESS Stop: 05/12/17 08:52 Calcium Carbonate (Calcium Carb) 600 mg PO DAILY [facility] Stop: 05/12/17 08:59 Last Admin: 03/13/17 09:13 Dose: 600 mg Dextrose/Sodium Chloride (D5-0.45ns) 1,000 mls @ 80 mls/hr IV .[id number] [facility] Stop: 05/11/17 19:59 Last Admin: 03/13/17 10:57 Dose: 80 mls/hr Ipratropium Tovey (Atrovent Neb 0.5mg/2.5ml) 0.5 mg IH Q2HRT PRN PRN Reason: Shortness of Breath or Wheeze Stop: 05/11/17 19:45 Lamotrigine 300 mg/ (Lamotrigine 50 mg) 350 mg PO BID [facility] Stop: 05/12/17 08:59 Last Admin: 03/13/17 09:17 Dose: 350 mg Levetiracetam (Keppra) 2,000 mg PO HS [facility] Stop: 05/11/17 20:59 Last Admin: 03/12/17 23:09 Dose: 2,000 mg Lorazepam (Ativan) 1 mg IV Q4H PRN; Protocol PRN Reason: Seizure Stop: 05/11/17 19:45 Magnesium Hydroxide (Milk Of Magnesia) 30 ml PO Q72H PRN PRN Reason: Constipation Ondansetron HCl (Zofran) 4 mg IV Q8H PRN PRN Reason: Nausea / Vomiting Stop: 05/11/17 19:45 Oxcarbazepine (Trileptal) 900 mg PO BID [facility] Stop: 05/12/17 08:59 Last Admin: 03/13/17 09:47 Dose: 900 mg Simvastatin (Zocor) 20 mg PO HS DONTE PRN Reason: Protocol Stop: 05/11/17 20:59 Last Admin: 03/12/17 23:09 Dose: 20 mg Sodium Phosphate (Fleet Enema) 133 ml RC DAILY PRN PRN Reason: IF DULCOLAX INEFFECTIVE Stop: 05/11/17 19:43 - Procedures Procedures: Procedures Procedure Code Date INSERT INDWELLING CATH 57.94 12/19/01 INSERT URINARY CATHETER [id number] 12/19/01 Internal Medicine Assmt/Plan - Assessment Assessment: uncontrolled seizures cerebral palsy hyponatremia
--- NOTE | 2017-03-13 16:41 | History & Physical ---
ADMIT DATE: 03/13/2017 CHIEF COMPLAINT: Seizures. HISTORY OF PRESENT ILLNESS: This is a 46-year-old male who is a half-way resident who is brought here to [facility] for 1-day history of intermittent seizure. The patient did not have any chest pain or any headaches or any ALOC. For this reason, the patient is now admitted. PAST MEDICAL HISTORY: Seizures, cerebral palsy. FAMILY HISTORY: Hypertension. SOCIAL HISTORY: The patient is a half-way resident, requiring 24-hour nursing care. PAST SURGICAL HISTORY: PEG. MEDICATIONS: Please see medication sheet. FAMILY HISTORY: Noncontributory. REVIEW OF SYSTEMS: Unable to obtain due to patient's mental status. PHYSICAL EXAMINATION: GENERAL: The patient is well developed, well nourished, in no acute distress. VITAL SIGNS: Temperature 97.6, heart rate 60, blood pressure ____/90, respirations 19, O2 98%. HEENT: Head; normocephalic, atraumatic. NECK: Supple. No mass. LUNGS: Few rhonchi. CARDIOVASCULAR: Regular rate and rhythm. ABDOMEN: Soft, nontender. LABORATORY DATA: WBC 7.2, H and H 14.1 and 42.2, platelet 255. Sodium 135, potassium 4.2, chloride 99, BUN 15, creatinine 0.6. The patient had a CT of the head done and the impression is no evidence of acute intracranial hemorrhage. The patient also had a chest x-ray done and the impression is increased left basal lung markings favoring atelectasis, underlying infiltrate is less likely and cardiomegaly. ASSESSMENT: Uncontrolled seizures, cerebral palsy, hypokalemia. PLAN: The patient to be admitted to the telemetry unit with the seizure precautions. We will monitor patient's Keppra level. We will keep the patient on IV fluids for hydration. Fall precautions will be initiated. We will continue to monitor the patient. [facility]# [id number]
[2017-03-14 02:23] LABS: URINE BILIRUBIN NEGATIVE (NEGATIVE); URINE BLOOD MODERATE (NEGATIVE); URINE GLUCOSE (UA) NEGATIVE (NEGATIVE); URINE KETONE NEGATIVE (NEGATIVE); URINE PROTEIN NEGATIVE (NEGATIVE); URINE UROBILINOGEN 0.2 E.U./dL (0.2 - 1.0)
[2017-03-14 02:27] LABS: URINE BACTERIA OCCASIONAL /hpf (NONE SEEN); URINE COLOR YELLOW; URINE EPITHELIAL CELLS RARE /lpf (FEW); URINE RBC 25-50 /hpf (0-5)
[2017-03-14 06:04] LABS: % BASOPHILS 0.1 % (0.0-2.0); % EOSINOPHILS 0.8 % (0.0-5.0); % NEUTROPHILS 71.1 % (40.0-80.0); HEMOGLOBIN 13.4 gm/dL (12-16); MEAN CORPUSCULAR HEMOGLOBIN 31.1 pg (26.0-30.0); MEAN CORPUSCULAR HGB CONC 33.4 pg (28.0-36.0); MEAN PLATELET VOLUME 7.7 fl; NEUTROPHILE ABSOLUTE 7.5 Th/cmm (1.8-8.0); PLATELET COUNT 259 Th/cmm (150-400); RED CELL DISTRIBUTION WIDTH 11.9 % (11.5-20.0)
[2017-03-14 06:09] LABS: WHITE BLOOD COUNT 10.5 Th/cmm (4.8-10.8)
[2017-03-14 06:27] LABS: ANION GAP 9.9 (7.0-16.0); BUN - UREA NITROGEN 7 mg/dL (7-25); CALCIUM SERUM 9.5 mg/dL (8.6-10.3); CHLORIDE 103 mEq/L (98-107); CREATININE - SERUM 0.5 mg/dL (0.7-1.3); GLUCOSE 117 mg/dL (70-105); POTASSIUM SERUM 3.9 mEq/L (3.5-5.1); SODIUM SERUM 138 mEq/L (136-145)
[2017-03-14] MEDS: Multivitamin w/ Minerals Tab PO SCH (08:52)
[2017-03-14] MEDS: D5-0.45NS 1,000 ML IV SCH (11:44)
--- NOTE | 2017-03-14 12:56 | Internal Medicine Prog Note ---
Internal Medicine Subjective - Subjective Service Date: 03/14/17 ([place] [id number]) Internal Medicine Objective - Results Result Diagrams: 03/14/17 05:25 03/14/17 05:25 Recent Labs: Laboratory Last Values WBC 10.5 Th/cmm (4.8-10.8) D 03/14/17 05:25 RBC 4.30 Mil/cmm (4.30-5.70) 03/14/17 05:25 Hgb 13.4 gm/dL (12-16) 03/14/17 05:25 Hct 40.0 % (41.0-60) L 03/14/17 05:25 MCV 93.0 fl (80-99) 03/14/17 05:25 MCH 31.1 pg (26.0-30.0) H 03/14/17 05:25 MCHC Differential 33.4 pg (28.0-36.0) 03/14/17 05:25 RDW 11.9 % (11.5-20.0) 03/14/17 05:25 Plt Count 259 Th/cmm (150-400) 03/14/17 05:25 MPV 7.7 fl 03/14/17 05:25 Neutrophils % 71.1 % (40.0-80.0) 03/14/17 05:25 Lymphocytes % 19.0 % (20.0-50.0) L 03/14/17 05:25 Monocytes % 9.0 % (2.0-10.0) 03/14/17 05:25 Eosinophils % 0.8 % (0.0-5.0) 03/14/17 05:25 Basophils % 0.1 % (0.0-2.0) 03/14/17 05:25 PT 10.0 SECONDS (9.5-11.5) 03/12/17 17:20 INR 0.96 (0.5-1.4) 03/12/17 17:20 Sodium 138 mEq/L (136-145) 03/14/17 05:25 Potassium 3.9 mEq/L (3.5-5.1) 03/14/17 05:25 Chloride 103 mEq/L (98-107) 03/14/17 05:25 Carbon Dioxide 29.0 mEq/L (21.0-31.0) 03/14/17 05:25 Anion Gap 9.9 (7.0-16.0) 03/14/17 05:25 BUN 7 mg/dL (7-25) 03/14/17 05:25 Creatinine 0.5 mg/dL (0.7-1.3) L 03/14/17 05:25 Est GFR ( Amer) > 60.0 ml/min (>90) 03/14/17 05:25 Est GFR (Non-Af Amer) > 60.0 ml/min 03/14/17 05:25 BUN/Creatinine Ratio 14.0 03/14/17 05:25 Glucose 117 mg/dL (70-105) H 03/14/17 05:25 Calcium 9.5 mg/dL (8.6-10.3) 03/14/17 05:25 Total Bilirubin 0.2 mg/dL (0.3-1.0) L 03/12/17 17:20 AST 18 U/L (13-39) 03/12/17 17:20 ALT 24 U/L (7-52) 03/12/17 17:20 Alkaline Phosphatase 112 U/L (34-104) H 03/12/17 17:20 Creatine Kinase 48 U/L (30-223) 03/12/17 17:20 Troponin I < 0.01 ng/mL (0.01-0.05) L 03/12/17 17:20 B-Natriuretic Peptide 11.3 pg/mL (5.0-100.0) 03/12/17 17:20 Total Protein 8.0 gm/dL (6.0-8.3) 03/12/17 17:20 Albumin 4.7 gm/dL (4.2-5.5) 03/12/17 17:20 Globulin 3.3 gm/dL 03/12/17 17:20 Albumin/Globulin Ratio 1.4 (1.0-1.8) 03/12/17 17:20 Triglycerides 158 mg/dL (<150) H 03/12/17 17:20 Cholesterol 194 mg/dL (<200) 03/12/17 17:20 LDL Cholesterol Direct 136 mg/dL (75-193) 03/12/17 17:20 HDL Cholesterol 48 mg/dL (23-92) 03/12/17 17:20 Urine Source CATH 03/14/17 02:11 Urine Color YELLOW 03/14/17 02:11 Urine Clarity HAZY (CLEAR) 03/14/17 02:11 Urine pH 6.0 (4.6 - 8.0) 03/14/17 02:11 Ur Specific [place] 1.010 (1.005-1.030) 03/14/17 02:11 Urine Protein NEGATIVE mg/dL (NEGATIVE) 03/14/17 02:11 Urine Glucose (UA) NEGATIVE mg/dL (NEGATIVE) 03/14/17 02:11 Urine Ketones NEGATIVE mg/dL (NEGATIVE) 03/14/17 02:11 Urine Blood MODERATE (NEGATIVE) H 03/14/17 02:11 Urine Nitrate NEGATIVE (NEGATIVE) 03/14/17 02:11 Urine Bilirubin NEGATIVE (NEGATIVE) 03/14/17 02:11 Urine Urobilinogen 0.2 E.U./dL (0.2 - 1.0) 03/14/17 02:11 Ur Leukocyte Esterase NEGATIVE (NEGATIVE) 03/14/17 02:11 Urine RBC 25-50 /hpf (0-5) H 03/14/17 02:11 Urine WBC 2-5 /hpf (0-5) H 03/14/17 02:11 Ur Epithelial Cells RARE /lpf (FEW) 03/14/17 02:11 Urine Bacteria OCCASIONAL /hpf (NONE SEEN) 03/14/17 02:11 - Physical Exam Vitals and I&O: Vital Signs Temp 98.7 F 03/14/17 12:29 Pulse 66 03/14/17 12:29 Resp 18 03/14/17 12:29 BP 121/79 03/14/17 12:29 Pulse Ox 95 03/14/17 12:29 Intake & Output 03/13/17 03/14/17 03/14/17 18:59 06:59 18:59 Intake Total 954.020 935 5050 Balance 954.244 395 7844 Weight (lbs) 112 lb 112 lb Intake: Intake, IV Amount 954.406 518 7174 D5-0.45NS 1,000 ml @ 80 954.342 998 0818 mls/hr IV .[id number] [facility] Rx #:[id number] Oral 30 Other: # Voids 3 Active Medications: Current Medications Atenolol (Tenormin) 50 mg PO DAILY [facility] Stop: 05/12/17 08:59 Last Admin: 03/14/17 08:52 Dose: 50 mg Levetiracetam (Keppra) 2,000 mg PO HS [facility] Stop: 05/11/17 20:59 Last Admin: 03/13/17 20:33 Dose: 2,000 mg Magnesium Hydroxide (Milk Of Magnesia) 30 ml PO Q72H PRN PRN Reason: Constipation Simvastatin (Zocor) 20 mg PO HS [facility] PRN Reason: Protocol Stop: 05/11/17 20:59 Last Admin: 03/13/17 20:33 Dose: 20 mg Sodium Phosphate (Fleet Enema) 133 ml RC DAILY PRN PRN Reason: IF DULCOLAX INEFFECTIVE Stop: 05/11/17 19:43 - Procedures Procedures: Procedures Procedure Code Date INSERT INDWELLING CATH 57.94 12/19/01 INSERT URINARY CATHETER [id number] 12/19/01 Internal Medicine Assmt/Plan - Assessment Assessment: uncontrolled seizures cerebral palsy hyponatremia
--- NOTE | 2017-03-14 20:02 | Discharge Summary ---
DATE OF DISCHARGE: 03/14/2017 DISCHARGE DIAGNOSES: 1. Uncontrolled seizures. 2. Resolved cerebral palsy. 3. Hyponatremia. HISTORY OF PRESENT ILLNESS: This is a 46-year-old male who is a [facility] resident who had 1 day history of intermittent seizure. PHYSICAL EXAMINATION: GENERAL: The patient is well developed, well nourished, no acute distress. VITAL SIGNS: Stable. HEENT: Normocephalic, atraumatic. NECK: Supple. No mass. LUNGS: Clear bilaterally. ABDOMEN: Soft, nontender. HOSPITAL COURSE: During the hospital stay, the patient was admitted to the telemetry unit. The patient had a chest x-ray done and the impression was left basal lung markings favoring atelectasis, underlying infiltrates less likely and cardiomegaly. The patient Keppra level was being monitored and also patient was on IV fluids for hydration. The patient did not have any seizure activities during the hospital stay. For this reason, the patient is stable for discharge. CONDITION UPON DISCHARGE: Fair. DISPOSITION: senior care. JOB# [id number]
== END 2017-03-14 18:15 | disposition home or self-care (01) | DRG 53 ==
LOC: ER 17:04 → TELE 20:30
PROVIDERS: ADMIT Internal Medicine; ATTEND Internal Medicine
DX: G40.909 Epilepsy, unspecified, not intractable, without status epilepticus (principal); G80.9 Cerebral palsy, unspecified; E87.1 Hypo-osmolality and hyponatremia; E87.6 Hypokalemia; I25.9 Chronic ischemic heart disease, unspecified; J98.11 Atelectasis; I51.7 Cardiomegaly; Z93.1 Gastrostomy status; Z82.49 Family history of ischemic heart disease and other diseases of the circulatory system
CPT/HCPCS: 36415-UA; 70450-TC; 71010-TC; 80048-TC; 80053-TC; 80061-TC; 80299-90; 81001-TC; 82550-TC; 83880-TC; 84484-TC; 85025-TC; 85610-TC; 93005; 94760; Z7610

== ENCOUNTER 2017-06-21 20:24 | Inpatient (IN) | payer MEDICAID ==
--- NOTE | 2017-06-21 21:04 | ED Physician Chart ---
ED Chief Complaint/HPI - Patient Information Date Seen:: 06/21/17 Time Seen:: 21:04 Chief Complaint:: Seizures Allergies:: Allergies Allergy/AdvReac Type Severity Reaction Status Date / Time No Known Allergies Allergy Verified 06/21/17 20:35 Vitals:: Vital Signs - 8 hr 06/21/17 20:25 Temp 98.1 F HR 107 RR 20 BP 140/89 O2 Sat % 93 Family Medical History - Family Member Father History Unknown: Yes Ethnicity: Unknown Living Status: Unknown ED Septic Shock - <6hrs of presentation: Vital Signs: Vital Signs - 8 hr 06/21/17 20:25 Temp 98.1 F HR 107 RR 20 BP 140/89 O2 Sat % 93
[2017-06-21 21:07] LABS: % EOSINOPHILS 0.8 % (0.0-5.0); % LYMPHOCYTES 9.5 % (20.0-50.0); % MONOCYTES 4.6 % (2.0-10.0); % NEUTROPHILS 85.1 % (40.0-80.0); EOSINOPHILE ABSOLUTE 0.1 Th/cmm (0.1-0.4); HEMATOCRIT 40.1 % (41.0-60); HEMOGLOBIN 13.6 gm/dL (12-16); LYMPHOCYTE ABSOLUTE 0.8 Th/cmm (1.5-3.0); MEAN CELL VOLUME 90.7 fl (80-99); MEAN CORPUSCULAR HEMOGLOBIN 30.7 pg (26.0-30.0); MEAN CORPUSCULAR HGB CONC 33.8 pg (28.0-36.0); MEAN PLATELET VOLUME 7.1 fl; MONOCYTE ABSOLUTE 0.4 Th/cmm (0.3-1.0); NEUTROPHILE ABSOLUTE 7.1 Th/cmm (1.8-8.0); PLATELET COUNT 283 Th/cmm (150-400); RED BLOOD COUNT 4.42 Mil/cmm (4.30-5.70); WHITE BLOOD COUNT 8.4 Th/cmm (4.8-10.8)
[2017-06-21 21:26] LABS: ALB/GLOB RATIO 1.5 (1.0-1.8); ALBUMIN 4.7 gm/dL (4.2-5.5); ALKALINE PHOSPHATASE 98 U/L (34-104); ANION GAP 13.3 (7.0-16.0); BILIRUBIN,TOTAL 0.2 mg/dL (0.3-1.0); BUN - UREA NITROGEN 17 mg/dL (7-25); CALCIUM SERUM 9.9 mg/dL (8.6-10.3); CARBON DIOXIDE 27.9 mEq/L (21.0-31.0); CHLORIDE 102 mEq/L (98-107); CREATININE - SERUM 0.7 mg/dL (0.7-1.3); GFR AFRICAN-AMERICAN > 60.0 ml/min (>90); GFR NON AFRICAN-AMERICAN > 60.0 ml/min; GLUCOSE 137 mg/dL (70-105); POTASSIUM SERUM 4.2 mEq/L (3.5-5.1); SGOT 19 U/L (13-39); SGPT/ALT 26 U/L (7-52); SODIUM SERUM 139 mEq/L (136-145); TOTAL PROTEIN,SERUM 7.8 gm/dL (6.0-8.3)
[2017-06-21] MEDS ORDERED: Fleet Enema 135 mL RC PRN (22:10)
[2017-06-21] MEDS ORDERED: guaiFENesin 200 MG/10 ML UDC PO PRN (22:12)
[2017-06-21] MEDS ORDERED: Albuterol Nebulizer 2.5mg/3mL HHN PRN (22:12)
[2017-06-21] MEDS ORDERED: Ipratropium Neb 0.5 mg/2.5 mL UD IH PRN (22:12)
[2017-06-21] MEDS ORDERED: Magnesium Hydroxide (MOM) 30 mL UDC PO SCH (23:15)
[2017-06-21 23:53] VITALS: BP 105/56
[2017-06-21] MEDS: D5-0.9%NS 1,000 ML IV SCH (23:57)
[2017-06-22] MEDS: Multivitamin w/ Minerals Tab PO SCH (09:07)
[2017-06-22] MEDS: Calcium Carb/Vit D 500 mg/200 U Tab PO SCH (09:07)
[2017-06-22] MEDS: D5-0.9%NS 1,000 ML IV SCH ×2 (09:09→17:18)
--- NOTE | 2017-06-22 09:48 | Diagnostic Imaging Report ---
Portable chest x-ray HISTORY: Shortness of breath The overall heart size is difficult to assess with portable technique, a poor inspiration, and a scoliosis. No obvious focal pulmonary processes. IMPRESSION: 1. No acute focal pulmonary processes 2. Scoliosis
--- NOTE | 2017-06-22 09:52 | Diagnostic Imaging Report ---
CT scan of the brain without intravenous contrast HISTORY: Seizures Total DLP equals 707 CTDI equals 37.0 Axial sections were obtained from the base of the skull to the vertex. The exam is compared to prior study of March 12, 2017. The exam demonstrates extensive encephalomalacia that occupies virtually the entire right cerebral hemisphere. Findings presumably related to an old large infarct throughout the middle cerebral artery distribution. No acute parenchymal abnormality is. No acute cerebral hemorrhage. No mass effect or shift of midline structures. Rounded intraluminal mucosal density seen within the right and left maxillary sinuses consistent with mucosal polyps or cysts. Similar density appears to be situated within the right sphenoid sinus area. IMPRESSION: 1. No change from March 12, 2017 2. Extensive encephalomalacia throughout the right cerebral hemisphere consistent with an old infarct. 3. No acute abnormalities 4. Intraluminal densities within the maxillary and sphenoid sinus regions suggesting mucosal polyps or cysts.
[2017-06-22 12:45] LABS: URINE MICROSCOPIC INDICATED? YES; URINE SOURCE CATH
[2017-06-22 12:49] LABS: URINE BILIRUBIN NEGATIVE (NEGATIVE); URINE BLOOD TRACE (NEGATIVE); URINE GLUCOSE (UA) NEGATIVE (NEGATIVE); URINE KETONE NEGATIVE (NEGATIVE); URINE LEUKOCYTE ESTERASE NEGATIVE (NEGATIVE); URINE NITRATE NEGATIVE (NEGATIVE); URINE PROTEIN NEGATIVE (NEGATIVE); URINE UROBILINOGEN 0.2 E.U./dL (0.2 - 1.0)
[2017-06-22 12:53] LABS: URINE CLARITY HAZY (CLEAR); URINE COLOR YELLOW
[2017-06-22 12:55] LABS: URINE AMORPHOUS SEDIMENT FEW PHOSPHATES (NONE SEEN); URINE BACTERIA OCCASIONAL /hpf (NONE SEEN); URINE EPITHELIAL CELLS FEW /lpf (FEW); URINE WBC 0-2 /hpf (0-5)
--- NOTE | 2017-06-22 18:46 | History & Physical ---
ADMIT DATE: 06/22/2017 HISTORY OF PRESENT ILLNESS: This is a 46-year-old male with history of mental retardation, seizure, cerebral palsy, hypertension, hypercholesterolemia, was admitted from nursing facility secondary to episode of seizure. The patient is nonverbal or active. No reported fever. PAST MEDICAL HISTORY: As mentioned in history of present illness. PAST SURGICAL HISTORY: None at this time. ALLERGIES: No known drug allergies. MEDICATIONS: Atenolol, Tylenol, ____, lamotrigine, Keppra, magnesium oxide, Tegretol, simvastatin. FAMILY HISTORY: Noncontributory. SOCIAL HISTORY: The patient is a skilled nursing patient requiring 24-hour total care. REVIEW OF SYSTEMS: This is limited secondary to the patient's current mental state. We will try to obtain more detailed review of systems at a later date by talking to family members and nursing staff at [facility] at ____. Also try to get information from Dr. Russo, who normally follows the patient. PHYSICAL EXAMINATION: VITAL SIGNS: Blood pressure 109/67, respirations 18, pulse 68, temperature 98.3. GENERAL: Elderly male, appears chronically ill. NECK: Supple. No mass. LUNGS: Equal breath sounds, few rhonchi. HEART: Regular rate and rhythm without appreciable murmur. ABDOMEN: Soft, globular. EXTREMITIES: Positive excoriations. NEUROLOGIC: Limited. Positive contractures. Positive scoliosis. LABORATORY DATA: WBC 8.4, hemoglobin 13, platelets 283. Sodium 139, potassium 4.2, BUN 17, creatinine 0.7, blood sugar 137. Albumin 4.7. UA showed 5 rbc's. ASSESSMENT AND PLAN: Uncontrolled seizure, possible sepsis, hypertension, seizure, cerebral palsy, hyperglycemia, decubitus ulcer, and hypercholesterolemia. We will continue the patient on aggressive IV hydration, continue on seizure precaution. We will refer the patient to neurologist. We will review the patient's head CT as well as chest x-ray. Continue with current care with followup consult and recommendations. We will adjust the patient's medications. JOB# [id number]
[2017-06-23] MEDS: D5-0.9%NS 1,000 ML IV SCH ×2 (03:33→13:58)
[2017-06-23 06:49] LABS: % BASOPHILS 0.5 % (0.0-2.0); % EOSINOPHILS 6.9 % (0.0-5.0); % LYMPHOCYTES 32.3 % (20.0-50.0); % MONOCYTES 7.8 % (2.0-10.0); % NEUTROPHILS 52.5 % (40.0-80.0); EOSINOPHILE ABSOLUTE 0.4 Th/cmm (0.1-0.4); HEMATOCRIT 36.6 % (41.0-60); HEMOGLOBIN 12.4 gm/dL (12-16); LYMPHOCYTE ABSOLUTE 2.1 Th/cmm (1.5-3.0); MEAN CELL VOLUME 93.1 fl (80-99); MEAN CORPUSCULAR HEMOGLOBIN 31.4 pg (26.0-30.0); MEAN CORPUSCULAR HGB CONC 33.7 pg (28.0-36.0); MONOCYTE ABSOLUTE 0.5 Th/cmm (0.3-1.0); NEUTROPHILE ABSOLUTE 3.5 Th/cmm (1.8-8.0); PLATELET COUNT 231 Th/cmm (150-400); RED BLOOD COUNT 3.94 Mil/cmm (4.30-5.70); RED CELL DISTRIBUTION WIDTH 11.8 % (11.5-20.0)
[2017-06-23 06:50] LABS: WHITE BLOOD COUNT 6.5 Th/cmm (4.8-10.8)
[2017-06-23 07:15] LABS: BUN - UREA NITROGEN 7 mg/dL (7-25); CALCIUM SERUM 8.3 mg/dL (8.6-10.3); CARBON DIOXIDE 28.8 mEq/L (21.0-31.0); CHLORIDE 105 mEq/L (98-107); CREATININE - SERUM 0.5 mg/dL (0.7-1.3); GFR AFRICAN-AMERICAN > 60.0 ml/min (>90); GFR NON AFRICAN-AMERICAN > 60.0 ml/min; GLUCOSE 83 mg/dL (70-105); MAGNESIUM 1.7 mg/dL (1.9-2.7); PHOSPHOROUS 2.3 mg/dL (2.5-5.0); POTASSIUM SERUM 3.8 mEq/L (3.5-5.1); SODIUM SERUM 137 mEq/L (136-145)
[2017-06-23] MEDS: Calcium Carb/Vit D 500 mg/200 U Tab PO SCH (09:06)
[2017-06-23] MEDS: Multivitamin w/ Minerals Tab PO SCH (09:06)
--- NOTE | 2017-06-23 09:07 | Diagnostic Imaging Report ---
Portable chest x-ray Time: 0745 hours History: Pain Allowing for portable technique the heart size is normal. No focal pulmonary parenchymal processes. No hilar or mediastinal abnormalities. Impression: No acute abnormalities.
[2017-06-23] MEDS ORDERED: Mag Sulfate 2gm/50mL Premix 2 GM/50 ML BAG IV ONE (15:04)
--- NOTE | 2017-06-23 15:08 | Internal Medicine Prog Note ---
Internal Medicine Subjective - Subjective Patient seen and examined:: with staff, chart reviewed Patient is:: awake, non-verbal, non-interactive Patient Complaints of:: congestion Per staff patient has:: no adverse event, no episodes of fall, poor appetite, tolerating meds Internal Medicine Objective - Results Result Diagrams: 06/23/17 06:35 06/23/17 06:35 Recent Labs: Laboratory Last Values WBC 6.5 Th/cmm (4.8-10.8) D 06/23/17 06:35 RBC 3.94 Mil/cmm (4.30-5.70) L 06/23/17 06:35 Hgb 12.4 gm/dL (12-16) 06/23/17 06:35 Hct 36.6 % (41.0-60) L 06/23/17 06:35 MCV 93.1 fl (80-99) 06/23/17 06:35 MCH 31.4 pg (26.0-30.0) H 06/23/17 06:35 MCHC Differential 33.7 pg (28.0-36.0) 06/23/17 06:35 RDW 11.8 % (11.5-20.0) 06/23/17 06:35 Plt Count 231 Th/cmm (150-400) 06/23/17 06:35 MPV 7.0 fl 06/23/17 06:35 Neutrophils % 52.5 % (40.0-80.0) 06/23/17 06:35 Lymphocytes % 32.3 % (20.0-50.0) 06/23/17 06:35 Monocytes % 7.8 % (2.0-10.0) 06/23/17 06:35 Eosinophils % 6.9 % (0.0-5.0) H 06/23/17 06:35 Basophils % 0.5 % (0.0-2.0) 06/23/17 06:35 Sodium 137 mEq/L (136-145) 06/23/17 06:35 Potassium 3.8 mEq/L (3.5-5.1) 06/23/17 06:35 Chloride 105 mEq/L (98-107) 06/23/17 06:35 Carbon Dioxide 28.8 mEq/L (21.0-31.0) 06/23/17 06:35 Anion Gap 7.0 (7.0-16.0) 06/23/17 06:35 BUN 7 mg/dL (7-25) 06/23/17 06:35 Creatinine 0.5 mg/dL (0.7-1.3) L 06/23/17 06:35 Est GFR ( Amer) > 60.0 ml/min (>90) 06/23/17 06:35 Est GFR (Non-Af Amer) > 60.0 ml/min 06/23/17 06:35 BUN/Creatinine Ratio 14.0 06/23/17 06:35 Glucose 83 mg/dL (70-105) 06/23/17 06:35 Calcium 8.3 mg/dL (8.6-10.3) L 06/23/17 06:35 Phosphorus 2.3 mg/dL (2.5-5.0) L 06/23/17 06:35 Magnesium 1.7 mg/dL (1.9-2.7) L 06/23/17 06:35 Total Bilirubin 0.2 mg/dL (0.3-1.0) L 06/21/17 20:59 AST 19 U/L (13-39) 06/21/17 20:59 ALT 26 U/L (7-52) 06/21/17 20:59 Alkaline Phosphatase 98 U/L (34-104) 06/21/17 20:59 Ammonia 86 umol/L (16-53) H 06/23/17 06:35 Troponin I < 0.01 ng/mL (0.01-0.05) L 06/21/17 20:59 B-Natriuretic Peptide 8.3 pg/mL (5.0-100.0) 06/21/17 20:59 Total Protein 7.8 gm/dL (6.0-8.3) 06/21/17 20:59 Albumin 4.7 gm/dL (4.2-5.5) 06/21/17 20:59 Globulin 3.1 gm/dL 06/21/17 20:59 Albumin/Globulin Ratio 1.5 (1.0-1.8) 06/21/17 20:59 TSH 3.40 uIU/ml (0.34-5.60) 06/23/17 06:35 Urine Source CATH 06/22/17 12:32 Urine Color YELLOW 06/22/17 12:32 Urine Clarity HAZY (CLEAR) 06/22/17 12:32 Urine pH 7.0 (4.6 - 8.0) 06/22/17 12:32 Ur Specific [place] 1.020 (1.005-1.030) 06/22/17 12:32 Urine Protein NEGATIVE mg/dL (NEGATIVE) 06/22/17 12:32 Urine Glucose (UA) NEGATIVE mg/dL (NEGATIVE) 06/22/17 12:32 Urine Ketones NEGATIVE mg/dL (NEGATIVE) 06/22/17 12:32 Urine Blood TRACE (NEGATIVE) 06/22/17 12:32 Urine Nitrate NEGATIVE (NEGATIVE) 06/22/17 12:32 Urine Bilirubin NEGATIVE (NEGATIVE) 06/22/17 12:32 Urine Urobilinogen 0.2 E.U./dL (0.2 - 1.0) 06/22/17 12:32 Ur Leukocyte Esterase NEGATIVE (NEGATIVE) 06/22/17 12:32 Urine RBC 2-5 /hpf (0-5) H 06/22/17 12:32 Urine WBC 0-2 /hpf (0-5) 06/22/17 12:32 Ur Epithelial Cells FEW /lpf (FEW) 06/22/17 12:32 Amorphous Sediment FEW PHOSPHATES (NONE SEEN) 06/22/17 12:32 Urine Bacteria OCCASIONAL /hpf (NONE SEEN) 06/22/17 12:32 Urine Mucus FEW /lpf (FEW) 06/22/17 12:32 - Physical Exam Vitals and I&O: Vital Signs Temp 97.4 F 06/23/17 11:00 Pulse 60 06/23/17 11:00 Resp 18 06/23/17 12:00 BP 101/76 06/23/17 11:00 Pulse Ox 99 06/23/17 11:00 Intake & Output 06/22/17 06/23/17 06/23/17 18:59 06:59 18:59 Intake Total 1735 1000 1000 Balance 1735 1000 1000 Weight (lbs) 48.988 kg 48.988 kg 48.988 kg Intake: Intake, IV Amount 1735 1000 1000 D5-0.9%Ns 1,000 ml @ 100 1735 1000 1000 mls/hr IV .Q10H [facility] Rx#: [id number] Other: # Voids 4 Active Medications: Current Medications Acetaminophen (Tylenol) 650 mg PO Q4H PRN PRN Reason: Pain Or Fever above 101 Stop: 08/20/17 22:11 Albuterol Sulfate (Albuterol 2.5mg/3ml Neb Ud) 2.5 mg HHN Q2HRT PRN PRN Reason: Shortness of Breath or Wheeze Stop: 08/20/17 22:11 Atenolol (Tenormin) 50 mg PO DAILY [facility] Stop: 08/21/17 08:59 Last Admin: 06/23/17 09:08 Dose: 50 mg Bisacodyl (Dulcolax 10 Mg Supp) 10 mg RC PRN PRN PRN Reason: IF MOM INEFFECTIVE Stop: 08/20/17 23:07 Calcium/Vitamin D (Oscal W/Vitamin D) 1 tab PO DAILY [facility] Stop: 08/21/17 08:59 Last Admin: 06/23/17 09:06 Dose: 1 tab Guaifenesin (Robitussin) 200 mg PO Q4HR PRN PRN Reason: Cough or Congestion Stop: 08/20/17 22:11 Dextrose/Sodium Chloride (D5-0.9%Ns) 1,000 mls @ 100 mls/hr IV .Q10H [facility] Stop: 08/20/17 22:14 Last Admin: 06/23/17 13:58 Dose: 100 mls/hr Magnesium Sulfate (Magnesium Sulfate Premix) 2 gm in 50 mls @ 25 mls/hr IV X1 ONE Stop: 06/23/17 17:03 Potassium Phosphate 30 mmole/ (Sodium Chloride) 260 mls @ 65 mls/hr IV X1 ONE Stop: 06/23/17 19:03 Ipratropium [place] (Atrovent Neb 0.5mg/2.5ml) 0.5 mg IH Q2HRT PRN PRN Reason: Shortness of Breath or Wheeze Stop: 08/20/17 22:11 Lamotrigine (Lamictal) 350 mg PO BID [facility] Stop: 08/21/17 08:59 Last Admin: 06/23/17 09:06 Dose: 350 mg Levetiracetam (Keppra) 2,000 mg PO HS [facility] Stop: 08/21/17 20:59 Last Admin: 06/22/17 21:18 Dose: 2,000 mg Lorazepam (Ativan) 1 mg IV Q4H PRN; Protocol PRN Reason: Seizure Stop: 08/20/17 22:11 Magnesium Hydroxide (Milk Of Magnesia) 30 ml PO Q72HR DONTE Stop: 08/20/17 23:14 Last Admin: 06/22/17 00:07 Dose: Not Given Ondansetron HCl (Zofran) 4 mg IV Q8H PRN PRN Reason: Nausea / Vomiting Stop: 08/20/17 22:11 Oxcarbazepine (Trileptal) 900 mg PO BID DONTE Stop: 08/21/17 08:59 Last Admin: 06/23/17 09:07 Dose: 900 mg Simvastatin (Zocor) 20 mg PO HS DONTE PRN Reason: Protocol Stop: 08/21/17 20:59 Last Admin: 06/22/17 21:17 Dose: 20 mg Sodium Phosphate (Fleet Enema) 133 ml RC PRN PRN PRN Reason: IF DULCOLAX INEFFECTIVE Stop: 08/20/17 22:09 General: congested, appears older HEENT: NC/AT, PERRLA Neck: Supple, No JVD, No LAD Lungs: congested Cardiovascular: RRR, Normal S1, Normal S2, without murmur Abdomen: non-distended, positive bowel sound Extremities: excoriation, deformity Neurological: no change - Procedures Procedures: Procedures Procedure Code Date INSERT INDWELLING CATH 57.94 12/19/01 INSERT URINARY CATHETER [id number] 12/19/01 Internal Medicine Assmt/Plan - Assessment Assessment: uncontrolled sz possible sepsis hyperglycemia electrolytes abn cp bedbound - Plan Plan: cont on ivf neuro consult will start on feeding will check ct head cpm alfred rn Nutritional Asmnt/Malnutr-PDOC - Dietary Evaluation Malnutrition Findings (Please click <Entered> for more info): Nutritional Asmnt/Malnutrition Start: 06/23/17 11: 51 Text: Status: Complete Freq: Document 06/23/17 11:54 SAAD (Rec: 06/23/17 12:20 SAAD [email or web address]) Nutritional Asmnt/Malnutrition Patient General Information Nutritional Screening High Risk Consult Diagnosis uncontrol seizure, possible sepsis Pertinent Medical Hx/Surgical Hx mental retardation, seizure, cerebral palsy, HTN, hypercholesterolemia Subjective Information Consult received for rednees on buttocks. Pt seen lying in bed, awake, non-verbal noted. Spoke with RN, pt is on NPO except for medication. Current Diet Order/ Nutrition Support NPO x day 2 Pertinent Medications calcium/vitamin D, D5-0.9nx Pertinent Labs 06/23 Na 137, K 3.8, Cl 105, BUN 7, Cr 0.5, Ca 8.3, Phos 2.3, Mg 1.7 Nutritional Hx/Data Height 1.47 m Height (Calculated Centimeters) 147.3 Current Weight (lbs) 48.988 kg Weight (Calculated Kilograms) 49.0 Weight (Calculated Grams) 41965.0 [place] Body Weight 102 % [place] Body Weight 106 Body Mass Index (BMI) 22.6 Weight Status Approriate GI Symptoms GI Symptoms None Last BM none Usual diet at home Regular pureed, pudding thick at SNF Skin Integrity/Comment: rash to back, pressure area to buttock Estimated Nutritional Goals BEE in Kcals: Using Current wt Calories/Kcals/Kg 30+ Kcals Calculated 1470+ Protein: Using Current wt Protein g/k-1.2 Protein Calculated 49-59 Fluid: ml 7813-5394 Nutritional Problem 1. Problem Problem inadequate food intake Etiology NPO status possible d/t seizure Signs/Symptoms: Pt on NPO Malnutrition Alert Protein-Calorie Malnutrition N/A Is there a minimum of two criteria No selected? Query Text:Check all the applicable criteria. A minimum of two criteria are recommended for diagnosis of either severe or non-severe malnutrition. Intervention/Recommendation Comments 1. Monitor NPO status. RN made aware. 2. If oral diet approriate, recommend reguar pureed pudding thick diet. Monitor refeeding syndrome related labs. 3. F/U as high risk in 2-3 days, 1/3-1/4 Expected Outcomes/Goals Expected Outcomes/Goals 1. Pt to meet at least 75% of nutritional needs in 2-3 days. 2. Wt stability, skin to remain intact, labs to approach WNL.
[2017-06-23] MEDS ORDERED: Potassium Phosphate 30 MMOLE in Sodium Chloride 0.9% 250 ML IV ONE (16:00)
[2017-06-24 06:33] LABS: % BASOPHILS 0.2 % (0.0-2.0); % EOSINOPHILS 5.9 % (0.0-5.0); % LYMPHOCYTES 19.9 % (20.0-50.0); % MONOCYTES 8.3 % (2.0-10.0); % NEUTROPHILS 65.7 % (40.0-80.0); EOSINOPHILE ABSOLUTE 0.5 Th/cmm (0.1-0.4); HEMATOCRIT 40.2 % (41.0-60); HEMOGLOBIN 13.4 gm/dL (12-16); LYMPHOCYTE ABSOLUTE 1.6 Th/cmm (1.5-3.0); MEAN CELL VOLUME 92.2 fl (80-99); MEAN CORPUSCULAR HEMOGLOBIN 30.8 pg (26.0-30.0); MEAN CORPUSCULAR HGB CONC 33.4 pg (28.0-36.0); MEAN PLATELET VOLUME 7.3 fl; MONOCYTE ABSOLUTE 0.6 Th/cmm (0.3-1.0); NEUTROPHILE ABSOLUTE 5.1 Th/cmm (1.8-8.0); PLATELET COUNT 254 Th/cmm (150-400); RED BLOOD COUNT 4.36 Mil/cmm (4.30-5.70); WHITE BLOOD COUNT 7.8 Th/cmm (4.8-10.8)
[2017-06-24 07:11] LABS: ANION GAP 10.9 (7.0-16.0); BUN - UREA NITROGEN 6 mg/dL (7-25); CARBON DIOXIDE 27.5 mEq/L (21.0-31.0); CHLORIDE 102 mEq/L (98-107); CREATININE - SERUM 0.5 mg/dL (0.7-1.3); GFR AFRICAN-AMERICAN > 60.0 ml/min (>90); GFR NON AFRICAN-AMERICAN > 60.0 ml/min; GLUCOSE 99 mg/dL (70-105); MAGNESIUM 2.5 mg/dL (1.9-2.7); POTASSIUM SERUM 4.4 mEq/L (3.5-5.1); SODIUM SERUM 136 mEq/L (136-145)
[2017-06-24] MEDS: Multivitamin w/ Minerals Tab PO SCH (08:49)
[2017-06-24] MEDS: Calcium Carb/Vit D 500 mg/200 U Tab PO SCH (08:50)
--- NOTE | 2017-06-24 10:28 | Internal Medicine Prog Note ---
Internal Medicine Subjective - Subjective Service Date: 06/24/17 Patient is:: awake, non-verbal, non-interactive Patient Complaints of:: congestion Per staff patient has:: no adverse event, no episodes of fall, poor appetite, tolerating meds Internal Medicine Objective - Results Result Diagrams: 06/24/17 05:40 06/24/17 05:40 Recent Labs: Laboratory Last Values WBC 7.8 Th/cmm (4.8-10.8) 06/24/17 05:40 RBC 4.36 Mil/cmm (4.30-5.70) 06/24/17 05:40 Hgb 13.4 gm/dL (12-16) 06/24/17 05:40 Hct 40.2 % (41.0-60) L 06/24/17 05:40 MCV 92.2 fl (80-99) 06/24/17 05:40 MCH 30.8 pg (26.0-30.0) H 06/24/17 05:40 MCHC Differential 33.4 pg (28.0-36.0) 06/24/17 05:40 RDW 12.0 % (11.5-20.0) 06/24/17 05:40 Plt Count 254 Th/cmm (150-400) 06/24/17 05:40 MPV 7.3 fl 06/24/17 05:40 Neutrophils % 65.7 % (40.0-80.0) 06/24/17 05:40 Lymphocytes % 19.9 % (20.0-50.0) L 06/24/17 05:40 Monocytes % 8.3 % (2.0-10.0) 06/24/17 05:40 Eosinophils % 5.9 % (0.0-5.0) H 06/24/17 05:40 Basophils % 0.2 % (0.0-2.0) 06/24/17 05:40 Sodium 136 mEq/L (136-145) 06/24/17 05:40 Potassium 4.4 mEq/L (3.5-5.1) 06/24/17 05:40 Chloride 102 mEq/L (98-107) 06/24/17 05:40 Carbon Dioxide 27.5 mEq/L (21.0-31.0) 06/24/17 05:40 Anion Gap 10.9 (7.0-16.0) 06/24/17 05:40 BUN 6 mg/dL (7-25) L 06/24/17 05:40 Creatinine 0.5 mg/dL (0.7-1.3) L 06/24/17 05:40 Est GFR ( Amer) > 60.0 ml/min (>90) 06/24/17 05:40 Est GFR (Non-Af Amer) > 60.0 ml/min 06/24/17 05:40 BUN/Creatinine Ratio 12.0 06/24/17 05:40 Glucose 99 mg/dL (70-105) 06/24/17 05:40 Calcium 9.0 mg/dL (8.6-10.3) 06/24/17 05:40 Phosphorus 2.3 mg/dL (2.5-5.0) L 06/23/17 06:35 Magnesium 2.5 mg/dL (1.9-2.7) 06/24/17 05:40 Total Bilirubin 0.2 mg/dL (0.3-1.0) L 06/21/17 20:59 AST 19 U/L (13-39) 06/21/17 20:59 ALT 26 U/L (7-52) 06/21/17 20:59 Alkaline Phosphatase 98 U/L (34-104) 06/21/17 20:59 Ammonia 86 umol/L (16-53) H 06/23/17 06:35 Troponin I < 0.01 ng/mL (0.01-0.05) L 06/21/17 20:59 B-Natriuretic Peptide 8.3 pg/mL (5.0-100.0) 06/21/17 20:59 Total Protein 7.8 gm/dL (6.0-8.3) 06/21/17 20:59 Albumin 4.7 gm/dL (4.2-5.5) 06/21/17 20:59 Globulin 3.1 gm/dL 06/21/17 20:59 Albumin/Globulin Ratio 1.5 (1.0-1.8) 06/21/17 20:59 TSH 3.40 uIU/ml (0.34-5.60) 06/23/17 06:35 Urine Source CATH 06/22/17 12:32 Urine Color YELLOW 06/22/17 12:32 Urine Clarity HAZY (CLEAR) 06/22/17 12:32 Urine pH 7.0 (4.6 - 8.0) 06/22/17 12:32 Ur Specific [place] 1.020 (1.005-1.030) 06/22/17 12:32 Urine Protein NEGATIVE mg/dL (NEGATIVE) 06/22/17 12:32 Urine Glucose (UA) NEGATIVE mg/dL (NEGATIVE) 06/22/17 12:32 Urine Ketones NEGATIVE mg/dL (NEGATIVE) 06/22/17 12:32 Urine Blood TRACE (NEGATIVE) 06/22/17 12:32 Urine Nitrate NEGATIVE (NEGATIVE) 06/22/17 12:32 Urine Bilirubin NEGATIVE (NEGATIVE) 06/22/17 12:32 Urine Urobilinogen 0.2 E.U./dL (0.2 - 1.0) 06/22/17 12:32 Ur Leukocyte Esterase NEGATIVE (NEGATIVE) 06/22/17 12:32 Urine RBC 2-5 /hpf (0-5) H 06/22/17 12:32 Urine WBC 0-2 /hpf (0-5) 06/22/17 12:32 Ur Epithelial Cells FEW /lpf (FEW) 06/22/17 12:32 Amorphous Sediment FEW PHOSPHATES (NONE SEEN) 06/22/17 12:32 Urine Bacteria OCCASIONAL /hpf (NONE SEEN) 06/22/17 12:32 Urine Mucus FEW /lpf (FEW) 06/22/17 12:32 - Physical Exam Vitals and I&O: Vital Signs Temp 98.7 F 06/24/17 04:00 Pulse 64 06/24/17 08:54 Resp 20 06/24/17 08:31 BP 108/74 06/24/17 08:54 Pulse Ox 98 06/24/17 08:31 Intake & Output 06/23/17 06/24/17 06/24/17 18:59 06:59 18:59 Intake Total 1010 Balance 1010 Weight (lbs) 108 lb Intake: Intake, IV Amount 1000 D5-0.9%Ns 1,000 ml @ 100 1000 mls/hr IV .Q10H [facility] Rx#: [id number] Oral 10 Other: # Voids 3 Active Medications: Current Medications Acetaminophen (Tylenol) 650 mg PO Q4H PRN PRN Reason: Pain Or Fever above 101 Stop: 02/28/18 22:11 Albuterol Sulfate (Albuterol 2.5mg/3ml Neb Ud) 2.5 mg HHN Q2HRT PRN PRN Reason: Shortness of Breath or Wheeze Stop: 08/20/17 22:11 Atenolol (Tenormin) 50 mg PO DAILY [facility] Stop: 08/21/17 08:59 Last Admin: 06/24/17 08:54 Dose: 50 mg Bisacodyl (Dulcolax 10 Mg Supp) 10 mg RC PRN PRN PRN Reason: IF MOM INEFFECTIVE Stop: 08/20/17 23:07 Calcium/Vitamin D (Oscal W/Vitamin D) 1 tab PO DAILY [facility] Stop: 08/21/17 08:59 Last Admin: 06/24/17 08:50 Dose: 1 tab Guaifenesin (Robitussin) 200 mg PO Q4HR PRN PRN Reason: Cough or Congestion Stop: 08/20/17 22:11 Dextrose/Sodium Chloride (D5-0.9%Ns) 1,000 mls @ 100 mls/hr IV .Q10H [facility] Stop: 08/20/17 22:14 Last Admin: 06/23/17 13:58 Dose: 100 mls/hr Ipratropium [place] (Atrovent Neb 0.5mg/2.5ml) 0.5 mg IH Q2HRT PRN PRN Reason: Shortness of Breath or Wheeze Stop: 08/20/17 22:11 Lamotrigine (Lamictal) 350 mg PO BID [facility] Stop: 08/21/17 08:59 Last Admin: 06/24/17 08:50 Dose: 350 mg Levetiracetam (Keppra) 2,000 mg PO HS [facility] Stop: 08/21/17 20:59 Last Admin: 06/23/17 21:53 Dose: 2,000 mg Lorazepam (Ativan) 1 mg IV Q4H PRN; Protocol PRN Reason: Seizure Stop: 08/20/17 22:11 Last Admin: 06/23/17 17:51 Dose: 1 mg Magnesium Hydroxide (Milk Of Magnesia) 30 ml PO Q72HR [facility] Stop: 08/20/17 23:14 Last Admin: 06/22/17 00:07 Dose: Not Given Ondansetron HCl (Zofran) 4 mg IV Q8H PRN PRN Reason: Nausea / Vomiting Stop: 08/20/17 22:11 Oxcarbazepine (Trileptal) 900 mg PO BID [facility] Stop: 08/21/17 08:59 Last Admin: 06/24/17 08:49 Dose: 900 mg Simvastatin (Zocor) 20 mg PO HS [facility] PRN Reason: Protocol Stop: 08/21/17 20:59 Last Admin: 06/23/17 21:54 Dose: 20 mg Sodium Phosphate (Fleet Enema) 133 ml RC PRN PRN PRN Reason: IF DULCOLAX INEFFECTIVE Stop: 08/20/17 22:09 General: congested, appears older HEENT: NC/AT, PERRLA Neck: Supple, No JVD, No LAD Lungs: congested Cardiovascular: RRR, Normal S1, Normal S2, without murmur Abdomen: non-distended, positive bowel sound Extremities: excoriation, deformity Neurological: no change - Procedures Procedures: Procedures Procedure Code Date INSERT INDWELLING CATH 57.94 12/19/01 INSERT URINARY CATHETER [id number] 12/19/01 Internal Medicine Assmt/Plan - Assessment Assessment: uncontrolled sz possible sepsis hyperglycemia electrolytes abn cp bedbound - Plan Plan: SEIZURE PRECAUTIONS ACCUCHECK WITH SLIDING SCALE MONITOR ELECTROLYTES FOLLOW UP LABS IN AM CONTINUE CURRENT PLAN OF CARE Nutritional Asmnt/Malnutr-PDOC - Dietary Evaluation Malnutrition Findings (Please click <Entered> for more info): Nutritional Asmnt/Malnutrition Start: 06/23/17 11: 51 Text: Status: Complete Freq: Document 06/23/17 11:54 SAAD (Rec: 06/23/17 12:20 LCHENG [email or web address]) Nutritional Asmnt/Malnutrition Patient General Information Nutritional Screening High Risk Consult Diagnosis uncontrol seizure, possible sepsis Pertinent Medical Hx/Surgical Hx mental retardation, seizure, cerebral palsy, HTN, hypercholesterolemia Subjective Information Consult received for rednees on buttocks. Pt seen lying in bed, awake, non-verbal noted. Spoke with RN, pt is on NPO except for medication. Current Diet Order/ Nutrition Support NPO x day 2 Pertinent Medications calcium/vitamin D, D5-0.9nx Pertinent Labs 06/23 Na 137, K 3.8, Cl 105, BUN 7, Cr 0.5, Ca 8.3, Phos 2.3, Mg 1.7 Nutritional Hx/Data Height 4 ft 10 in Height (Calculated Centimeters) 147.3 Current Weight (lbs) 108 lb Weight (Calculated Kilograms) 49.0 Weight (Calculated Grams) 41189.0 [place] Body Weight 102 % [place] Body Weight 106 Body Mass Index (BMI) 22.6 Weight Status Approriate GI Symptoms GI Symptoms None Last BM none Usual diet at home Regular pureed, pudding thick at SNF Skin Integrity/Comment: rash to back, pressure area to buttock Estimated Nutritional Goals BEE in Kcals: Using Current wt Calories/Kcals/Kg 30+ Kcals Calculated 1470+ Protein: Using Current wt Protein g/k-1.2 Protein Calculated 49-59 Fluid: ml 3062-2567 Nutritional Problem 1. Problem Problem inadequate food intake Etiology NPO status possible d/t seizure Signs/Symptoms: Pt on NPO Malnutrition Alert Protein-Calorie Malnutrition N/A Is there a minimum of two criteria No selected? Query Text:Check all the applicable criteria. A minimum of two criteria are recommended for diagnosis of either severe or non-severe malnutrition. Intervention/Recommendation Comments 1. Monitor NPO status. RN made aware. 2. If oral diet approriate, recommend reguar pureed pudding thick diet. Monitor refeeding syndrome related labs. 3. F/U as high risk in 2-3 days, 1/3-1/4 Expected Outcomes/Goals Expected Outcomes/Goals 1. Pt to meet at least 75% of nutritional needs in 2-3 days. 2. Wt stability, skin to remain intact, labs to approach WNL.
[2017-06-25 02:17] LABS: FOLIC ACID >20.0 ng/mL (>3.0)
[2017-06-26 08:10] LABS: KEPPRA/LEVETIRACETAM 49.4 ug/mL (10.0-40.0)
== END 2017-06-24 15:05 | disposition home or self-care (01) | DRG 720 ==
LOC: ER 20:24 → TELE 22:15
PROVIDERS: ADMIT Internal Medicine; ATTEND Internal Medicine
DX: A41.9 Sepsis, unspecified organism (principal); E87.8 Other disorders of electrolyte and fluid balance, not elsewhere classified; R53.2 Functional quadriplegia; L89.90 Pressure ulcer of unspecified site, unspecified stage; G40.909 Epilepsy, unspecified, not intractable, without status epilepticus; G80.9 Cerebral palsy, unspecified; I10 Essential (primary) hypertension; R73.9 Hyperglycemia, unspecified; E78.00 Pure hypercholesterolemia, unspecified; Z74.01 Bed confinement status
CPT/HCPCS: 36415-UA; 70450-TC; 71010-TC; 80048-TC; 80053-TC; 80183-90; 80299-90; 81001-TC; 82140-TC; 82607-90; 82746-90; 83735-TC; 83880-TC; 84100-TC; 84443-TC; 84484-TC; 85025-TC; 90799; 93005; 94760; 96374; J2060; J3475; J7042; Z7610

== ENCOUNTER 2017-08-04 07:53 | Emergency (ER) | payer MEDICAID ==
--- NOTE | 2017-08-04 08:18 | ED Physician Chart ---
ED Chief Complaint/HPI - Patient Information Date Seen:: 08/04/17 Time Seen:: 08:00 Chief Complaint:: INCREASED FREQUENCY OF FOCAL SEIZURES History of Present Illness:: This 46-year-old male with cerebral palsy was brought to the emergency department from his nursing facility because of increased focal seizures. He takes Keppra for seizures. The patient is completely nonverbal and unable to provide any history. He is awake with his eyes open but does not follow simple commands. Paperwork which accompany the patient noted that he has profound intellectual disability, seizure disorder, spastic cerebral palsy, quadriplegia , blindness, history of anemia, history of asthma, osteopenia, and hypertension. In the past his had a hairline fracture of his left tibia. He has cardiomegaly and mild CHF. He also has hypercholesterolemia and a fracture of his left femur. In the past he has had pressure sores on his buttocks with no active ulceration at the present time. His physician on record is Dr. Merino Allergies:: Allergies Allergy/AdvReac Type Severity Reaction Status Date / Time No Known Allergies Allergy Verified 06/21/17 20:35 Vitals:: Vital Signs - 8 hr 08/04/17 08:01 Temp 97.7 F HR 89 RR 18 BP 134/87 O2 Sat % 96 ED Review of Systems - Review of Systems General/Constitutional: No fever, Other (THE PATIENT IS UNABLE TO PROVIDE ANY INFORMATION FOR ROS.) ED Past Medical History - Past Medical History Past Medical History: Other ( SEE HPI.) Family History: Other ( SEE HPI.) Family Medical History - Family Member Father History Unknown: Yes Ethnicity: Unknown Living Status: Unknown Hx Family Cancer: (UNKNOWN) Hx Family Coronary Artery Disease: (UNKNOWN) Hx Family Congestive Heart Failure: (UNKNOWN) Hx Family Hypertension: (UNKNOWN) Hx Family Stroke: (UNKNOWN) Hx Family Diabetes: (UNKNOWN) Hx Family Seizures: (UNKNOWN) Hx Family Dementia: (UNKNOWN) Hx Family AIDS: (UNKNOWN) Hx Family COPD: (UNKNOWN) Hx Family Hepatitis: (UNKNOWN) Hx Family Psychiatric Problems: (UNKNOWN) Hx Family Tuberculosis: (UNKNOWN) ED Physical Exam - Physical Examination Other Gen/Cons comments:: THIS 46-YEAR-OLD MALE IS AWAKE WITH EYES OPEN A COMPLETELY NONRESPONSIVE TO VERBAL OR TACTILE STIMULATION. IT APPEARS TO BE IN NO ACUTE DISTRESS OR PAIN. NO SEIZURE ACTIVITY IS PRESENT AT THIS TIME. HE IS WELL-KEPT AND CLEAN. NO EVIDENCE OF HEAD TRAUMA. NONAMBULATORY. Head: Atraumatic Eyes: PERRL Skin: Nl inspection, No rash, No skin lesions, No ecchymosis, Well hydrated, No lymphadenopathy ENMT: External ears, nose nl ( PATIENT DOES NOT OPEN MOUTH AND RESISTS EXAMINATION WITH TONGUE BLADE. NO BITE GOINS ON TONGUE.) Other Neck comments:: THE PATIENT HAS MUSCLE SPASM IN HIS NECK. NO UNUSUAL MASSES. GOOD CAROTID PULSES BILATERALLY. Cardio Vascular: RRR, No murmur, gallop, rubs, NL S1 S2 Other Cardio Vascular comments:: ADEQUATE PULSES IN ALL FOUR EXTREMITIES. GI: No tenderness/rebounding/guarding, No hernia, No mass/bruits Other GI comments:: RECTAL EXAMINATION DEFERRED AT MY DISCRETION. Other comments:: EXTERNAL GENITALIA NORMAL MAIL. NO YAN CATHETER. Extremities: No edema Other Extremities comments:: CONTRACTURES IN ALL FOUR EXTREMITIES CONSISTENT WITH CHRONIC CEREBRAL POLICY. 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 NO PRESSURE ULCER RATIONS IDENTIFIED. ED Labs/Radiology/EKG Results - Lab Results Results: Laboratory Tests 08/04/17 08:30 WBC 8.5 RBC 4.51 Hgb 14.0 Hct 41.5 MCV 92.0 MCH 30.9 H MCHC Differential 33.6 RDW 12.0 Plt Count 241 MPV 7.4 Neutrophils % 77.5 Lymphocytes % 15.5 L Monocytes % 4.6 Eosinophils % 2.1 Basophils % 0.3 CBC interpretation: White count is 8.5 and within normal parameters. The hemoglobin is 14.0 and within normal parameters. The platelet count is 241 and again within normal parameters. Impression: Normal CBC. Laboratory Tests 08/04/17 08/04/17 08:30 08:30 WBC 8.5 RBC 4.51 Hgb 14.0 Hct 41.5 MCV 92.0 MCH 30.9 H MCHC Differential 33.6 RDW 12.0 Plt Count 241 MPV 7.4 Neutrophils % 77.5 Lymphocytes % 15.5 L Monocytes % 4.6 Eosinophils % 2.1 Basophils % 0.3 Sodium 136 Potassium 4.0 Chloride 97 L Carbon Dioxide 29.2 Anion Gap 13.8 BUN 12 Creatinine 0.8 Est GFR ( Amer) > 60.0 Est GFR (Non-Af Amer) > 60.0 BUN/Creatinine Ratio 15.0 Glucose 154 H Calcium 10.6 H Total Bilirubin 0.3 AST 24 ALT 32 Alkaline Phosphatase 87 Total Protein 8.1 Albumin 4.6 Globulin 3.5 Albumin/Globulin Ratio 1.3 THIS CBC IS UNREMARKABLE WITH NO LEUKOCYTOSIS OR ANEMIA. ELECTROLYTES ARE ALL WITHIN NORMAL PARAMETERS. RENAL FUNCTION IS NORMAL. LIVER FUNCTION TESTS ARE ALL WITHIN NORMAL PARAMETERS. ED Assessment - Assessment General Assessment: CASE SUMMARY: THIS 46-YEAR-OLD MALE WITH CEREBRAL PALSY SINCE WAS BROUGHT TO THE EMERGENCY DEPARTMENT BECAUSE OF SEIZURE ACTIVITY. AT THE TIME OF HIS RIVAL'S EYES WERE OPEN BUT HE DID NOT RESPOND TO ANY VERBAL OR TACTILE STIMULATION. DURING THE COURSE OF HIS EMERGENCY DEPARTMENT EVALUATION, NO SEIZURE ACTIVITY WAS NOTICED BY MYSELF OR NURSING STAFF. ON PHYSICAL EXAMINATION THERE WAS NO EVIDENCE OF ACUTE INJURY. THE CARDIOPULMONARY EXAMINATION WAS UNREMARKABLE. LABORATORY TESTING SHOWED THE PATIENT WITH A NORMAL CBC AND METABOLIC PANEL. AFTER A PERIOD OF OBSERVATION AND NO FURTHER SEIZURE ACTIVITY THE PATIENT WAS RETURNED TO THE NURSING FACILITY IN STABLE CONDITION. THE PATIENT'S PRIMARY PHYSICIAN WAS CONTACTED AND ADVISED THAT THE PATIENT WAS BEING RETURNED TO THE NURSING FACILITY. MDM DDX SEIZURE ACTIVITY: NOT DUE TO HYPOGLYCEMIA BASED ON LABORATORY RESULTS. NOT TO TO ELECTROLYTE IMBALANCE BASED ON LABORATORY RESULTS. NOT DUE TO SEPSIS BASED ON VITAL SIGNS AND LABORATORY RESULTS. ED Septic Shock - . 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 - Patient Disposition Discharge/Transfer:: [facility] SNF ED Discharge Plan - Patient Disposition Admit/Discharge/Transfer: Discharge/Transfered to SNF Condition at Disposition: Stable Instructions: Seizure, Adult Accepting Physician: Obed Hope [Active] -
[2017-08-04 08:41] LABS: % BASOPHILS 0.3 % (0.0-2.0); % EOSINOPHILS 2.1 % (0.0-5.0); % LYMPHOCYTES 15.5 % (20.0-50.0); % MONOCYTES 4.6 % (2.0-10.0); % NEUTROPHILS 77.5 % (40.0-80.0); EOSINOPHILE ABSOLUTE 0.2 Th/cmm (0.1-0.4); HEMATOCRIT 41.5 % (41.0-60); LYMPHOCYTE ABSOLUTE 1.3 Th/cmm (1.5-3.0); MEAN CORPUSCULAR HEMOGLOBIN 30.9 pg (26.0-30.0); MEAN CORPUSCULAR HGB CONC 33.6 pg (28.0-36.0); MEAN PLATELET VOLUME 7.4 fl; MONOCYTE ABSOLUTE 0.4 Th/cmm (0.3-1.0); NEUTROPHILE ABSOLUTE 6.6 Th/cmm (1.8-8.0); PLATELET COUNT 241 Th/cmm (150-400); RED BLOOD COUNT 4.51 Mil/cmm (4.30-5.70); WHITE BLOOD COUNT 8.5 Th/cmm (4.8-10.8)
[2017-08-04 08:54] LABS: ALB/GLOB RATIO 1.3 (1.0-1.8); ALBUMIN 4.6 gm/dL (4.2-5.5); ALKALINE PHOSPHATASE 87 U/L (34-104); ANION GAP 13.8 (7.0-16.0); BILIRUBIN,TOTAL 0.3 mg/dL (0.3-1.0); BUN - UREA NITROGEN 12 mg/dL (7-25); CALCIUM SERUM 10.6 mg/dL (8.6-10.3); CARBON DIOXIDE 29.2 mEq/L (21.0-31.0); CHLORIDE 97 mEq/L (98-107); CREATININE - SERUM 0.8 mg/dL (0.7-1.3); GFR AFRICAN-AMERICAN > 60.0 ml/min (>90); GFR NON AFRICAN-AMERICAN > 60.0 ml/min; GLUCOSE 154 mg/dL (70-105); SGOT 24 U/L (13-39); SGPT/ALT 32 U/L (7-52); SODIUM SERUM 136 mEq/L (136-145); TOTAL PROTEIN,SERUM 8.1 gm/dL (6.0-8.3)
[2017-08-04] MEDS ORDERED: Sodium Chloride 0.9% 1,000 ML IV ONE (10:21)
[2017-08-04 10:54] LABS: URINE MICROSCOPIC INDICATED? YES; URINE SOURCE RANDOM
[2017-08-04 10:56] LABS: URINE BILIRUBIN NEGATIVE (NEGATIVE); URINE BLOOD LARGE (NEGATIVE); URINE GLUCOSE (UA) NEGATIVE (NEGATIVE); URINE KETONE NEGATIVE (NEGATIVE); URINE LEUKOCYTE ESTERASE NEGATIVE (NEGATIVE); URINE NITRATE NEGATIVE (NEGATIVE); URINE PROTEIN 30 mg/dL (NEGATIVE); URINE UROBILINOGEN 0.2 E.U./dL (0.2 - 1.0)
[2017-08-04 11:24] LABS: URINE CLARITY BLOODY (CLEAR); URINE COLOR RED
[2017-08-04 11:25] LABS: URINE EPITHELIAL CELLS OCCASIONAL /lpf (FEW); URINE RBC >100 /hpf (0-5); URINE WBC 0-2 /hpf (0-5)
[2017-08-04 11:26] LABS: URINE BACTERIA FEW /hpf (NONE SEEN)
== END 2017-08-04 12:06 ==
LOC: ER 07:53
DX: G80.9 Cerebral palsy, unspecified (principal); G40.909 Epilepsy, unspecified, not intractable, without status epilepticus
CPT/HCPCS: 36415-UA; 80053-TC; 81001-TC; 85025-TC; J7030; Z7502; Z7610